=== PATIENT | female | born 1940 | race Caucasian/White ===

== ENCOUNTER 2017-03-19 09:48 | Inpatient (IN) | payer OTHER ==
--- NOTE | 2017-03-19 09:54 | EDPHY ---
H & P HPI/ROS: CHIEF COMPLAINT: Near syncope HISTORY OF PRESENT ILLNESS: The patient is a 76-year-old female, with CHF and oxygen dependent COPD, brought in by EMS, presenting with near syncope. The patient got up this morning feeling fatigued. While sitting in her chair she increasingly felt shaky, developed tunnel vision and thought she would pass out Associated with moderate neck tightness. The patient states she experienced similar throat tightness prior to cardiac stent placement. Her pulse oximeter at home read 62%. The patient is on 2-4L of oxygen chronically. She states she did not feel more short of breath than usual. EMS increased her oxygen and gave her a duoneb en route. She feels better now, though still has some neck tightness. REVIEW OF SYSTEMS: A comprehensive 10 point review of systems is otherwise negative aside from elements mentioned in the history of present illness. Past Medical/Surgical History: CHF, Oxygen-dependent COPD, Pacemaker, Peripheral neuropathy Social History: Daily cigarette smoker. Lives at home with her . Smoking Status: Current every day smoker Physical Exam: General Appearance: Alert, pleasant Eyes: Pupils equal and round, no conjunctival pallor or injection ENT, Mouth: Mucous membranes moist Neck: Normal inspection Respiratory: Normal respiratory rate and effort, Expiratory wheezing bilaterally Cardiovascular: Regular rate and rhythm Gastrointestinal: Abdomen is soft and non-tender Neurological: A&O, nonfocal, normal gait Skin: Warm and dry, no rash Extremities: Nontender, 1+ pedal edema Psychiatric: Mood and affect normal Constitutional: Initial Vital Signs Temperature (C) 36.8 C 03/19/17 09:56 Heart Rate 74 03/19/17 09:56 Respiratory Rate 20 03/19/17 09:56 Blood Pressure 121/70 H 03/19/17 09:56 O2 Sat (%) 96 03/19/17 09:56 O2 Delivery Mode Nasal Cannula O2 (L/minute) 3 Allergies/Adverse Reactions: No Known Allergies Allergy (Verified 01/29/14 20:37) Home Medications: Medication Instructions Recorded Aspirin [Aspirin 81mg (*)] 81 mg PO DAILY 07/10/10 Bisoprolol Fumarate [Zebeta (*)] 5 mg PO HS 07/10/10 Bisoprolol Fumarate [Zebeta (*)] 10 mg PO DAILY 07/10/10 Brimonidine 0.1% [ALPHAGAN P 0.1% 1 drops EACHEYE BID 07/10/10 (*)] Furosemide [Lasix 40 MG (*)] 40 mg PO DAILY@16 07/10/10 Furosemide [Lasix 80 MG (*)] 80 mg PO DAILY 07/10/10 Gabapentin [Neurontin 400 MG (*)] 1,200 mg PO QID 07/10/10 Latanoprost 0.005% [Xalatan 0.005% 1 drops EACHEYE HS 07/10/10 (*)] Nitroglycerin [Nitrostat 0.4 mg 0.4 mg SL Q5M PRN 07/10/10 (*)] Pramipexole Di-HCl [Mirapex 1 mg 1 mg PO HS 07/10/10 (*)] Rivaroxaban [Xarelto 10mg (*)] 20 mg PO HS 07/10/10 Tiotropium Inhaler [Spiriva 18 mcg IH DAILY 07/10/10 Inhaler] celeCOXIB [Celebrex (*)] 200 mg PO DAILY 07/10/10 traMADol [Ultram 50 mg (*)] 100 mg PO QID PRN 07/10/10 Dronedarone HCl [Multaq 400 mg (*)] 400 mg PO BIDMEAL 01/29/14 Pantoprazole Sodium [Protonix 40mg 40 mg PO DAILY 01/29/14 (*)] methYLPHENIDATE HCL [Ritalin 10mg 20 mg PO BID@12,16 01/29/14 (*)] Fluticasone/Salmeter 500/50Mcg 1 puffs IH DAILY PRN 03/19/17 [Advair 500/50 (*)] clonazePAM [klonoPIN (*)] 1 mg PO HS 03/19/17 Medical Decision Making - Diagnostics EKG Interpretation: The 12 lead EKG was interpreted by myself. See hard copy and/or "tracemaster" electronic copy for interpretation: Atrial-paced rhythm. Imaging Results: CXR: cardiomegaly and peribronchial thickening Imaging: I viewed and interpreted images myself ED Course/Re-evaluation: The patient is a pleasant 76-year-old female with history of CHF, presenting with a near syncope and throat tightness this morning. She woke up feeling more fatigued than usual. While sitting in her chair she began to shake and her vision was going dark. The patient states her at home pulse oximeter was 62%. The patient notes a throat tightness that felt similar to prior cardiac stent placement. On exam she has expiratory wheezing. She received albuterol and DuoNeb upon arrival. She states she is feeling better after breathing treatments. Plan for EKG, CBC, Troponin, and chest x-ray. I will have her pacemaker interrogated. The patient is 96% on 3L O2. Clinical scenario concerning for acute coronary syndrome. Stat EKG reveals no evidence of ischemia or dysrhythmia. Initial troponin normal. Her D-dimer is slightly elevated, though looking back on her other D-dimer's, her ddimer has always been somewhat elevated. I do not think that she has an acute pulmonary embolism today and have decided not to pursue a CT pulmonary angiogram. The hospitalist service was consulted for admission. The patient will be admitted to [facility]. Differential Diagnosis: Differential diagnosis includes though it is not limited to pneumonia, pneumothorax, pulmonary embolism, aortic dissection, pericarditis, acute coronary syndrome. - Data Points Laboratory Results: Laboratory Results 03/19/17 09:45 03/19/17 09:45 Medications Given: Discontinued Medications Methylphenidate HCl (Ritalin) 20 mg PO BID@12,16 SAMMI Stop: 09/15/17 15:59 Last Admin: 03/19/17 17:29 Dose: Not Given Departure - Departure Disposition: [facility] Inpatient Acute Clinical Impression: Near syncope, Acute dyspnea Condition: Fair Report Scribed for: Viviana Aguilar Report Scribed by: Garima Campbell Date of Report: 03/19/17 Time of Report: 09:53 Physician Review and Approval Statement: 03/19/17 09:53 Portions of this note were transcribed by a medical director/head team physician. I personally performed the history, physical exam, and medical decision-making; and confirmed the accuracy of the information in the transcribed note.
[2017-03-19 10:36] LABS: ANION GAP 7 mEq/L (8-16); CARBON DIOXIDE 40 mEq/l (22-31); CHLORIDE 94 mEq/L (97-110); CREATININE 0.7 mg/dL (0.6-1.0); GLOMERULAR FILTRATION RATE > 60; GLUCOSE 71 mg/dL (70-100); POTASSIUM 4.6 mEq/L (3.5-5.2); SODIUM 141 mEq/L (134-144)
[2017-03-19 10:37] LABS: % IMMATURE GRANULYOCYTES 0.2 % (0.0-1.1); ABSOLUTE IMMATURE GRANULOCYTES 0.01 10^3/uL (0.00-0.10); ADD DIFF? NO; ADD MORPH? YES; ADD SCAN? NO; ATYPICAL LYMPHOCYTE FLAG 10 (0-99); FRAGMENT RBC FLAG 0 (0-99); HEMATOCRIT 44.3 % (38.0-47.0); HEMOGLOBIN 12.8 g/dL (12.6-16.3); LEFT SHIFT FLG 0 (0-99); LIPEMIA HEMOLYSIS FLAG 70 (0-99); MEAN CELL HEMOGLOBIN 26.7 pg (27.9-34.1); MEAN CELL VOLUME 92.3 fL (81.5-99.8); MEAN PLATELET VOLUME 10.6 fL (8.7-11.7); PLATELET CLUMPS FLAG 0 (0-99); PLATELET COUNT 151 10^3/uL (150-400); RED CELL DISTRIBUTION WIDTH 14.1 % (11.5-15.2)
[2017-03-19 10:38] LABS: MEAN CELL HEMOGLOBIN CONCENTR. 28.9 g/dL (32.4-36.7)
[2017-03-19 10:47] LABS: TROPONIN I < 0.012 ng/mL (0-0.034)
--- NOTE | 2017-03-19 10:59 | CPEKG ---
Heart Rate: 74 RR Interval: 811 P-R Interval: 148 QRSD Interval: 104 QT Interval: 396 QTC Interval: 440 QRS Omer: -19 T Wave Omer: 40 EKG Severity - ABNORMAL ECG - EKG Impression: ATRIAL-PACED RHYTHM EKG Impression: BORDERLINE LEFT AXIS DEVIATION Electronically Signed By: Viviana Aguilar 20-Mar-2017 20:33:05
[2017-03-19 11:21] LABS: HYPOCHROMIA 1+; PLATELET ESTIMATE ADEQUATE (ADEQ); POLYCHROMASIA 1+
[2017-03-19] MEDS ORDERED: FLUTICASONE/SALMETER 500/50MCG DISKUS IH PRN (14:12)
[2017-03-19] MEDS ORDERED: NITROGLYCERIN 0.4 MG BTL SL PRN (14:12)
[2017-03-19] MEDS ORDERED: ONDANSETRON 4 MG/2 ML VIAL IVP PRN (14:15)
[2017-03-19] MEDS ORDERED: ZOLPIDEM TARTRATE 5 MG TAB PO PRN (14:15)
[2017-03-19] MEDS ORDERED: ACETAMINOPHEN 325 MG TAB PO PRN (14:15)
[2017-03-19] MEDS: DRONEDARONE HCL 400 MG TAB PO SCH (17:11)
[2017-03-19] MEDS: traMADol 50 MG TAB PO PRN ×2 (17:11→22:24)
[2017-03-19] MEDS: ASPIRIN 81 MG CHEWABLE TAB PO SCH (17:12)
[2017-03-19] MEDS: GABAPENTIN 400 MG CAP PO SCH ×2 (17:12→21:21)
[2017-03-19] MEDS: FUROSEMIDE 40 MG TAB PO SCH (17:12)
--- NOTE | 2017-03-19 17:51 | PDGENHP ---
History and Physical History and Physical: HISTORY AND PHYSICAL CC: Throat tightness, presyncopal symptoms, dyspnea HISTORY: This patient with a history of heart and lung disease was doing well in her usual state until this morning when she had abrupt spontaneous onset of a lightheadedness with "closing in of my vision", sense of tightness in the throat , dyspnea, and nausea. It is hard for her to recall precisely how long the symptoms lasted but she said that got better when paramedics arrived and applied oxygen. The symptoms are completely resolved at this time. The symptoms do remind her somewhat of symptoms she had before receiving a coronary stent around 10 years ago. She has had no pleuritic pain today. She has had no pain or swelling in her legs recently. She has had no recent fevers. She has had no recent acute cardiac or pulmonary symptoms otherwise. She does have some chronic COPD and respiratory failure with home oxygen and her symptoms from that disorder are unchanged. She does mention to me that she still smokes an occasional cigarette. She states she is compliant with her medications ROS: A comprehensive 10 system review revealed no other significant findings PAST MEDICAL HISTORY: Coronary disease with right coronary artery stent Atrial fibrillation, pacemaker placement, on full-dose anticoagulation chronically COPD with chronic respiratory failure and cor pulmonale on home oxygen Peripheral Neuropathy Osteoarthritis Chronic pain syndrome Appendectomy tonsillectomy FAMILY MEDICAL HISTORY: Heart disease and cancer SOCIAL HISTORY: lives with her in the [facility] private home Still smokes an occasional cigarette No significant alcohol MEDICATIONS: The patients list has been reconciled by our clinical pharmacist in the EMR. I have reviewed the list and ordered appropriate medicines. 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 No other acute cardiopulmonary changes. Osteoporosis and old compression fractures are noted. Permanent pacemaker is in place 12 LEAD EKG, my personal review of the tracing: Sinus rhythm with incomplete right bundle-branch block left axis deviation ASSESSMENT: - symptoms suspicious for unstable angina pectoralis in a patient with prior history of coronary disease with stent to the right coronary -her symptoms have currently resolved and there is no heart failure or arrhythmia and a normal 1st troponin -in addition to angina possible causes of this syndrome include arrhythmia; PE is quite unlikely on anticoagulation -history of atrial fibrillation, currently in a paced rhythm and on anticoagulant -stable chronic respiratory failure with COPD, hypoxemia and CO2 retention -continued tobacco abuse -she does not appear to be on a statin medication PLANS: -observe on night monitor -serial cardiac enzymes and EKG -if she is stable with no evidence of infarction or heart failure will plan on doing stress testing tomorrow which would be with Lexiscan due to her lung disease and other issues -check a lipid panel and will end up recommending statin therapy in this we can come up with some other specific reason to avoid that -tobacco counseling I have reviewed the patient's case in detail with Dr. Sabi Aguilar I have reviewed the patient's past medical records as part of this assessment, including prior hospital admission records
[2017-03-19] MEDS ORDERED: clonazePAM 1 MG TAB PO SCH (21:00)
[2017-03-19] MEDS: PRAMIPEXOLE 1 MG TAB PO SCH (21:20)
[2017-03-19] MEDS: RIVAROXABAN 10 MG TAB PO SCH (21:21)
[2017-03-19] MEDS: BISOPROLOL FUMARATE 5 MG TAB PO SCH (21:21)
[2017-03-19] MEDS: BRIMONIDINE 0.1% 5 ML OPHT.BTL EACHEYE SCH (22:38)
[2017-03-19] MEDS: LATANOPROST 0.005% 2.5 ML OPHT DROPS EACHEYE SCH (22:39)
[2017-03-20 05:17] LABS: ANION GAP 3 mEq/L (8-16); CALCIUM 8.7 mg/dL (8.5-10.4); CARBON DIOXIDE 37 mEq/l (22-31); CHLORIDE 99 mEq/L (97-110); CHOLESTEROL 153 mg/dL (140-220); CHOLESTEROL/HDL RATIO 2.43 RATIO (1.00-4.44); CREATININE 0.7 mg/dL (0.6-1.0); GLOMERULAR FILTRATION RATE > 60; GLUCOSE 77 mg/dL (70-100); HIGH DENSITY LIPOPROTEIN 63 mg/dL (40-85); LDL/HDL RATIO 1.25 RATIO (1.00-3.22); LOW DENSITY LIPOPROTEIN 79 mg/dL (80-100); NON-HIGH DENSITY LIPOPROTEIN 90 mg/dL (90-129); POTASSIUM 4.6 mEq/L (3.5-5.2); SODIUM 139 mEq/L (134-144); TRIGLYCERIDE 57 mg/dL (35-135); VERY LOW DENSITY LIPOPROTEINS 11 mg/dL (8-25)
[2017-03-20 05:28] LABS: TROPONIN I < 0.012 ng/mL (0-0.034)
[2017-03-20] MEDS: GABAPENTIN 400 MG CAP PO SCH ×4 (06:21→21:47)
[2017-03-20] MEDS ORDERED: TIOTROPIUM INHALER 18 MCG/DOSE 5 DOSE/MDI IH SCH (09:00)
[2017-03-20] MEDS ORDERED: IOPAMIDOL (ISOVUE 370) 100 ML BTL IV ONE (09:48)
[2017-03-20 10:05] LABS: BASE EXCESS 6.8 mEq/L (-2.5-2.5); BICARBONATE 37 mEq/L (22-26); MEASURED OXYGEN SATURATION 91 % (92-95); PO2 68 mmHg (65-75); TCO2 39 mEq/L (23-27)
[2017-03-20 10:10] LABS: PCO2 88 mmHg (34-38)
[2017-03-20 10:18] LABS: ANION GAP 4 mEq/L (8-16); CALCIUM 8.8 mg/dL (8.5-10.4); CARBON DIOXIDE 39 mEq/l (22-31); CHLORIDE 98 mEq/L (97-110); CREATININE 0.6 mg/dL (0.6-1.0); GLOMERULAR FILTRATION RATE > 60; GLUCOSE 79 mg/dL (70-100); POTASSIUM 4.4 mEq/L (3.5-5.2); SODIUM 141 mEq/L (134-144)
--- NOTE | 2017-03-20 10:44 | HOSPPROG ---
Hospitalist Progress Note Assessment/Plan: ACUTE CRITICAL CARE CONSULTATION FOR CHANGE IN NEUROLOGIC STATUS I was called in to see the patient approximately 930 this morning. The nurse reports to me that on her 1st visit early this morning the patient appeared to be sleeping comfortably and she did not try to arouse the patient or examined her. On a subsequent visit with the patient at approximately 9:15 a.m. this morning the patient is reported to have been sitting in the bed with her head between her knees and poorly responsive, answering briefly only a question or to not following commands and appearing fairly uncomfortable. By the time I am seeing the patient at 9:30 a.m. she is now unresponsive to all but painful stimuli. She responds to attempt at getting arterial blood gas and venous blood draws by ineffective minimal withdrawal of her limbs. She is breathing comfortably has stable vital signs with mild hypertension, good oxygenation on little more than her usual inhaled oxygen, and is sinus rhythm on telemetry monitor. On my initial examination I get no verbal response from her at all and I can not get her to respond to any verbal input from me. Her pupils when I pull her eyes open are equal round and reactive. She does not make any eye contact stares blankly straight ahead. There is no facial asymmetry. When I pick out hand both of her hands she does not seem to siebel solution architect my hands at all, and if I told her hands up off the bed and leave them up there she will with her elbows flexed liberally hold her hands several inches off the bed. I do not find a Babinski abnormality or any other signs of localizing weakness. Her skin is warm and dry with slightly pale color compared to previous. Respirations do not appear labored more than usual and lungs have very diminished but otherwise clear breath sounds. Heart is regular without new murmur. There is no rash or other acute skin changes. I called for a stroke alert which we have now completed and I called for some tests. We have a fingerstick blood glucose at 96. We have a repeat chemistry panel which is unremarkable. We have and anterior blood gas showing a pCO2 of 88 and a pH of 7.24. We have a CT scan of the head noncontrast with no evidence of bleed. There is questionable evidence of internal capsule abnormalities potentially consistent with ischemia on the left. There is no concerning abnormality on CT angio head and neck. There is nothing to suggest PE on CT angio of the chest. DIAGNOSES: -acute altered mental status may be as CO2 narcosis, I doubt a stroke but will have to have follow-up CT scanning to look at the internal capsule changes on the left. We are not able to MRI as she has an old pacer -acute hypercarbic respiratory failure with respiratory acidosis and chronic hypoxemic respiratory failure. The cause of this acute changes uncertain. She has had no new medications though her medications do include both Klonopin and tramadol which she was given last night before bedtime. There is no identified metabolic change or infection and she does not have PE or heart failure. It is possible this is a primary neurologic condition. -chest pain and near syncope occurred yesterday and with the reason for her admission. She has ruled out for KS and we are planning when able to do cardiac stress testing -history of COPD -history of coronary artery disease PLANS: -begin BiPAP therapy and follow her clinical response closely, repeat ABG -will monitor her and evaluate her further with the possibility of acute stroke considered -repeat CT scan of the head in 1-2 days is considered depending on her progress -discontinue any sedating medicines SUBJECTIVE: Patient unresponsive unable to give any history OBJECTIVE Vitals reviewed: Mild hypertension otherwise stable without fever Phlebotomy Instructor, my review: Sinus rhythm So far a total of greater than 70 minutes of critical care time at the bedside is spent with the patient. I reviewed all the above with the patient's . We had consulted the neurologist on-call at [facility] and I have spoken with him once and will be calling him back again at this time. Objective: Vital Signs Temp Pulse Resp BP Pulse Ox 36.6 C 70 17 141/60 H 95 03/20/17 07:33 03/20/17 07:33 03/20/17 07:33 03/20/17 07:33 03/20/17 07:33 Laboratory Results 03/20/17 09:45 03/19/17 03/20/17 03/21/17 06:59 06:59 06:59 Intake Total 600 Balance 600 ICD10 Worksheet Patient Problems: Problems Problem Status Onset Acute dyspnea Acute Near syncope Acute
[2017-03-20] MEDS: BRIMONIDINE 0.1% 5 ML OPHT.BTL EACHEYE SCH ×2 (11:58→22:08)
[2017-03-20] MEDS: FUROSEMIDE 80 MG TAB PO SCH (12:54)
[2017-03-20] MEDS: BISOPROLOL FUMARATE 5 MG TAB PO SCH ×2 (12:54→21:47)
[2017-03-20] MEDS: DRONEDARONE HCL 400 MG TAB PO SCH ×2 (12:54→18:47)
[2017-03-20] MEDS: ASPIRIN 81 MG CHEWABLE TAB PO SCH (12:54)
[2017-03-20] MEDS: PANTOPRAZOLE SODIUM 40 MG TAB PO SCH (12:55)
[2017-03-20 14:31] LABS: BASE EXCESS 7.3 mEq/L (-2.5-2.5); BICARBONATE 37 mEq/L (22-26); MEASURED OXYGEN SATURATION 98 % (92-95); PO2 107 mmHg (65-75); TCO2 39 mEq/L (23-27)
[2017-03-20 14:32] LABS: BIPAP YES
[2017-03-20 14:33] LABS: EXP PRESSURE 6; INSP PRESSURE 16; O2 CONCENTRATIION 50 % (0-100); P/F RATIO 214 RATIO
[2017-03-20 14:37] LABS: PCO2 84 mmHg (34-38)
[2017-03-20] MEDS: FUROSEMIDE 40 MG TAB PO SCH (15:39)
[2017-03-20] MEDS: IPRATROPIUM/ALBUTEROL 3 ML DEYVIAL IH SCH ×2 (17:57→22:30)
[2017-03-20] MEDS: methylPREDNISolone SOD SUCC 125 MG/2 ML VIAL IVP SCH (18:50)
[2017-03-20] MEDS: PRAMIPEXOLE 1 MG TAB PO SCH (21:47)
[2017-03-20] MEDS: RIVAROXABAN 10 MG TAB PO SCH (21:48)
[2017-03-20] MEDS: LATANOPROST 0.005% 2.5 ML OPHT DROPS EACHEYE SCH (22:08)
[2017-03-21] MEDS: methylPREDNISolone SOD SUCC 125 MG/2 ML VIAL IVP SCH ×3 (00:43→12:40)
[2017-03-21] MEDS: GABAPENTIN 400 MG CAP PO SCH ×5 (00:44→20:08)
[2017-03-21] MEDS: PRAMIPEXOLE 1 MG TAB PO SCH ×2 (00:45→20:08)
[2017-03-21] MEDS ORDERED: traMADol 50 MG TAB PO ONE (01:11)
[2017-03-21] MEDS: IPRATROPIUM/ALBUTEROL 3 ML DEYVIAL IH SCH ×3 (05:35→17:59)
[2017-03-21] MEDS: BISOPROLOL FUMARATE 5 MG TAB PO SCH ×2 (09:04→20:08)
[2017-03-21] MEDS: DRONEDARONE HCL 400 MG TAB PO SCH ×3 (09:04→18:30)
[2017-03-21] MEDS: ASPIRIN 81 MG CHEWABLE TAB PO SCH ×2 (09:04→09:32)
--- NOTE | 2017-03-21 09:13 | HOSPPROG ---
Hospitalist Progress Note Assessment/Plan: DIAGNOSES: -ACUTE CO2 NARCOSIS, RESOLVED AFTER BIPAP, STEROIDS, ALBUTEROL -ACUTE HYPERCARBIC RESPIRATORY FAILURE WITH RESPIRATORY ACIDOSIS AND CHRONIC HYPERCARBIC/HYPOXEMIC RESPIRATORY FAILURE: suspect due to COPD exacerbation -CHEST PAIN PRESENTING SYMPTOM, resolved, history of coronary artery disease and stent -CT SCAN OF HEAD WITH SUBTLE CHANGES SUGGESTIVE OF POSSIBLE INTERNAL CAPSULE STROKE, BUT NO SYNDROME CLINICALLY CONSISTENT WITH THAT -HISTORY OF ATRIAL FIBRILLATION, CURRENTLY PACED ON ANTICOAGULATION -HISTORY OF COPD Is now doing well on OxyMask. Will continue oxygen support, steroids and bronchodilators and increase activity as able. At the moment I do not see signs of heart failure or any definite signs of pneumonia. Her presenting symptoms still raise concern for possible coronary issues and need further evaluation I reviewed in detail with Dr. Schreiber today PLANS: -continue steroids and bronchodilators and oxygen support as needed -increase activity as able -repeat CT scan of the head tomorrow to reassess left internal capsule findings on prior study -Lexiscan stress test when she is clearly stable -keep off any sedating medicines here and also well at home SUBJECTIVE: States she feels comfortable with no chest pain leg pain or other discomforts, no nausea or fever symptoms, and is very hungry Slept well during the night Was able to wean off of BiPAP over night and is on OxyMask at this point OBJECTIVE Vitals reviewed: Mild hypertension otherwise stable without fever Juice Tester, my review: Paced at 80 Objective: Vital Signs Temp Pulse Resp BP Pulse Ox 36.9 C 80 20 137/56 H 91 L 03/20/17 21:00 03/21/17 09:04 03/21/17 06:00 03/21/17 09:04 03/21/17 06:00 03/20/17 03/21/17 03/22/17 06:59 06:59 06:59 Intake Total 300 Output Total 1400 Balance -1100 ICD10 Worksheet Patient Problems: Problems Problem Status Onset Acute dyspnea Acute Near syncope Acute
[2017-03-21] MEDS: PANTOPRAZOLE SODIUM 40 MG TAB PO SCH (09:32)
[2017-03-21] MEDS: FUROSEMIDE 80 MG TAB PO SCH (09:32)
[2017-03-21 11:27] LABS: BASE EXCESS 6.6 mEq/L (-2.5-2.5); BICARBONATE 33 mEq/L (22-26); MEASURED OXYGEN SATURATION 92 % (92-95); PCO2 56 mmHg (34-38); PO2 64 mmHg (65-75); TCO2 35 mEq/L (23-27)
[2017-03-21] MEDS: BRIMONIDINE 0.1% 5 ML OPHT.BTL EACHEYE SCH ×2 (11:51→20:08)
--- NOTE | 2017-03-21 15:32 | PDINTPN ---
Computer Numerical Control Operator Progress Note Assessment/Plan: Assessment: Acute on chronic hypercapneic respiratory failure: Clinically improved after BiPAP. ABG probably at baseline now. COPD exacerbation: Likely contributed to respiratory failure. On steroids Atrial fibrillation: Chronic Plan: Change to PO steroids. Continue supplemental oxygen. an transfer out of ICU. ? cardiac evaluation, although current deterioration could all be due to COPD with a subtle perturbation. Avoid any respiratory depressants 03/21/17 15:28 Subjective: Feels better, more alert, denies dyspnea, cough. Denies CP. Objective: Vital Signs Temp Pulse Resp BP Pulse Ox 36.9 C 75 18 97/46 L 93 03/20/17 21:00 03/21/17 14:00 03/21/17 14:00 03/21/17 14:00 03/21/17 14:00 03/20/17 03/21/17 03/22/17 05:59 05:59 05:59 Intake Total 300 Output Total 1400 200 Balance -1100 -200 Laboratory Tests 03/21/17 11:20 pCO2 56 H pO2 64 L Total CO2 35 H ABG pH 7.38 Total O2 Concentration 2.0 Physical Exam - Physical Exam General Appearance: alert, no apparent distress EENT: normal ENT inspection Neck: normal inspection Respiratory: No lungs clear, No normal breath sounds (decreased bilaterally) Cardiac/Chest: normal peripheral pulses, regular rate, rhythm, No edema Abdomen: normal bowel sounds, non-tender, soft Skin: normal color, warm/dry Extremities: normal inspection Neuro/Psych: no motor/sensory deficits, alert, normal mood/affect, oriented x 3 ICD10 Worksheet Patient Problems: Problems Problem Status Onset Acute dyspnea Acute Near syncope Acute
--- NOTE | 2017-03-21 15:56 | GCON ---
[f rep st] CONSULTATION PULMONARY/CRITICAL CARE CONSULTATION. DATE OF CONSULTATION: 03/20/2017 REFERRING PHYSICIAN: [facility] MD REASON FOR REFERRAL: Evaluation and management of acute on chronic hypercapnic respiratory failure. HISTORY: The patient is a 76-year-old woman, known to me from outpatient followup for her severe oxygen-dependent COPD. She was admitted yesterday, stating that she was in her usual state of health when she had a fairly abrupt onset of lightheadedness and loss of vision with tightness in her throat, shortness of breath, and nausea. Paramedics were called and arrived. She was put on oxygen, and her symptoms improved. She was brought to the hospital and admitted. This morning, the patient became less responsive and was found to have a respiratory acidosis. She was transferred to the intensive care unit, where she was placed on bypass. She is starting to become a bit more responsive but still is nowhere near her baseline. PAST MEDICAL HISTORY: 1. COPD with chronic hypercapnic respiratory insufficiency, cor pulmonale, on continuous home oxygen. 2. Coronary artery disease status post right coronary artery stent. 3. Atrial fibrillation status post pacemaker, on full-dose anticoagulation. 4. Peripheral neuropathy. 5. Osteoarthritis. 6. Status post appendectomy. MEDICATIONS: Xarelto, Nitrostat, Mirapex, aspirin, Lasix, Celebrex, bisoprolol , Spiriva, tramadol, gabapentin, furosemide, Ritalin, Protonix, Multaq, Advair, and clonazepam 1 mg in the evening. ALLERGIES: None. SOCIAL HISTORY: The patient has long-standing history of smoking and still smokes a cigarette occasionally. She lives at home with her . She denies alcohol. FAMILY HISTORY: Unremarkable. REVIEW OF SYSTEMS: Review of systems is unobtainable. PHYSICAL EXAMINATION: GENERAL: The patient is somnolent and minimally arousable. VITAL SIGNS: Blood pressure is 103/54 with a pulse of 80. She is afebrile. Oxygen saturations are 93% on 35% oxygen via BiPAP. HEENT: Normocephalic and atraumatic. No icterus. NECK: No JVD. Trachea is midline. CHEST: Decreased breath sounds bilaterally. CARDIAC: Irregularly irregular without murmur. ABDOMEN: Soft, nontender. Bowel sounds are present. EXTREMITIES: No clubbing, cyanosis, or edema. NEURO: Minimall responsive, moves all extremities LABORATORY: CBC is normal. Chemistry panel shows a carbon dioxide level of 40. An arterial blood gas shows a pH of 7.24 with a pO2 of 68, a CO2 of 88, and a total bicarbonate of 32 on 2 L of oxygen. Subsequent arterial blood gas on BiPAP shows a pH of 7.26 with a pCO2 of 84, pO2 of 107 on 50% oxygen. IMAGING: A CT scan of the chest demonstrates a possible tiny subsegmental left pulmonary artery thrombus. There was a band of atelectasis/fibrosis in the right lower lobe. There was some mild bronchial thickening with mucous plugging. Images reviewed. ASSESSMENT: 1. Chronic obstructive pulmonary disease exacerbation. 2. Acute on chronic hypercapnic respiratory failure. The patient has an increase in her baseline CO2, which likely normally runs in the 50s. She has improved a bit with BiPAP, and I am hopeful that she will continue to improve, barring any overall change in her status. RECOMMENDATIONS: 1. Continue BiPAP. I concur with the current settings. 2. Avoid/minimize any respiratory depressants, including narcotics and benzodiazepines. 3. I had a long talk with the patient's , daughters, and Dr. [facility]ett regarding her course status. The patient had expressed that she would not want to be intubated if it was going to be prolonged, but would consider intubation for a shorter, more acute and reversible deterioration. After this long discussion, the family feels that, given the current circumstances, she would probably want to be intubated; so she will be intubated if she deteriorates. 4. Continue IV steroids. I do not think I would give IV antibiotics currently , but this can be reassessed if the patient develops fever, elevated white blood count, or a productive cough. /[id number]/MODL MTDD
[2017-03-21] MEDS: FUROSEMIDE 40 MG TAB PO SCH (15:57)
[2017-03-21] MEDS: predniSONE 20 MG TAB PO SCH (18:17)
[2017-03-21] MEDS: RIVAROXABAN 10 MG TAB PO SCH (20:08)
[2017-03-21] MEDS: LATANOPROST 0.005% 2.5 ML OPHT DROPS EACHEYE SCH (20:08)
[2017-03-22] MEDS: IPRATROPIUM/ALBUTEROL 3 ML DEYVIAL IH SCH ×5 (00:50→22:51)
[2017-03-22] MEDS: PRAMIPEXOLE 1 MG TAB PO SCH ×3 (01:10→19:38)
[2017-03-22] MEDS: traMADol 50 MG TAB PO PRN ×2 (01:41→08:39)
[2017-03-22] MEDS ORDERED: PRAMIPEXOLE 1 MG TAB PO ONE (03:21)
[2017-03-22 05:13] LABS: % IMMATURE GRANULYOCYTES 0.3 % (0.0-1.1); ABSOLUTE IMMATURE GRANULOCYTES 0.02 10^3/uL (0.00-0.10); ADD DIFF? NO; ADD MORPH? NO; ADD SCAN? NO; ATYPICAL LYMPHOCYTE FLAG 0 (0-99); FRAGMENT RBC FLAG 0 (0-99); HEMATOCRIT 37.7 % (38.0-47.0); HEMOGLOBIN 11.4 g/dL (12.6-16.3); LEFT SHIFT FLG 30 (0-99); LIPEMIA HEMOLYSIS FLAG 80 (0-99); MEAN CELL HEMOGLOBIN 26.4 pg (27.9-34.1); MEAN CELL HEMOGLOBIN CONCENTR. 30.2 g/dL (32.4-36.7); MEAN CELL VOLUME 87.3 fL (81.5-99.8); MEAN PLATELET VOLUME 9.9 fL (8.7-11.7); PLATELET CLUMPS FLAG 10 (0-99); PLATELET COUNT 137 10^3/uL (150-400); RED BLOOD CELL COUNT 4.32 10^6/uL (4.18-5.33); RED CELL DISTRIBUTION WIDTH 14.1 % (11.5-15.2)
[2017-03-22 05:21] LABS: ANION GAP 11 mEq/L (8-16); CALCIUM 8.7 mg/dL (8.5-10.4); CARBON DIOXIDE 32 mEq/l (22-31); CHLORIDE 97 mEq/L (97-110); CREATININE 0.9 mg/dL (0.6-1.0); GLOMERULAR FILTRATION RATE > 60; GLUCOSE 223 mg/dL (70-100); SODIUM 140 mEq/L (134-144)
[2017-03-22] MEDS: GABAPENTIN 400 MG CAP PO SCH ×4 (07:04→19:39)
[2017-03-22] MEDS: DRONEDARONE HCL 400 MG TAB PO SCH ×2 (08:37→17:11)
[2017-03-22] MEDS: predniSONE 20 MG TAB PO SCH ×2 (08:37→17:11)
[2017-03-22] MEDS: ASPIRIN 81 MG CHEWABLE TAB PO SCH (08:37)
[2017-03-22] MEDS: BISOPROLOL FUMARATE 5 MG TAB PO SCH ×2 (08:38→19:38)
[2017-03-22] MEDS: BRIMONIDINE 0.1% 5 ML OPHT.BTL EACHEYE SCH ×2 (08:39→19:43)
[2017-03-22] MEDS: FUROSEMIDE 80 MG TAB PO SCH (08:39)
[2017-03-22] MEDS: PANTOPRAZOLE SODIUM 40 MG TAB PO SCH (08:39)
--- NOTE | 2017-03-22 11:41 | PDINTPN ---
Case Therapist Progress Note Assessment/Plan: Assessment: Acute on chronic hypercapneic respiratory failure: Clinically improved after BiPAP. ABG probably at baseline now. COPD exacerbation: Likely contributed to respiratory failure. On steroids Atrial fibrillation: Chronic Hyperglycemia: Likely due to steroids. Plan: Continue PO steroids, reduce dose. Continue supplemental oxygen. Probably can discharge today. ? cardiac evaluation, although current deterioration could all be due to COPD with a subtle perturbation such as fluid change/edema. Avoid any respiratory depressants 03/22/17 11:43 03/22/17 11:44 Subjective: Feels better, dyspnea back at baseline. Appetite good. Objective: Vital Signs Temp Pulse Resp BP Pulse Ox 37.2 C 82 16 125/51 H 96 03/22/17 08:00 03/22/17 08:00 03/22/17 08:00 03/22/17 08:00 03/22/17 08:00 Laboratory Results 03/22/17 05:00 03/22/17 05:00 03/21/17 03/22/17 03/23/17 05:59 05:59 05:59 Intake Total 300 500 Output Total 1400 400 Balance -1100 100 CXR: Improved edema. Images reviewed. Physical Exam - Physical Exam General Appearance: alert, no apparent distress EENT: normal ENT inspection Neck: normal inspection Respiratory: lungs clear, normal breath sounds Cardiac/Chest: regular rate, rhythm, No edema Abdomen: normal bowel sounds, non-tender Skin: normal color, warm/dry Extremities: non-tender Neuro/Psych: alert, normal mood/affect, oriented x 3 ICD10 Worksheet Patient Problems: Problems Problem Status Onset Acute dyspnea Acute Near syncope Acute
--- NOTE | 2017-03-22 14:24 | HOSPPROG ---
Hospitalist Progress Note Assessment/Plan: DIAGNOSES: -ACUTE CO2 NARCOSIS, RESOLVED AFTER BIPAP, STEROIDS, ALBUTEROL -ACUTE HYPERCARBIC RESPIRATORY FAILURE WITH RESPIRATORY ACIDOSIS AND CHRONIC HYPERCARBIC/HYPOXEMIC RESPIRATORY FAILURE: suspect due to COPD exacerbation -CHEST PAIN PRESENTING SYMPTOM, resolved, history of coronary artery disease and stent -CT SCAN OF HEAD WITH SUBTLE CHANGES SUGGESTIVE OF POSSIBLE INTERNAL CAPSULE STROKE, BUT NO SYNDROME CLINICALLY CONSISTENT WITH THAT -HISTORY OF ATRIAL FIBRILLATION, CURRENTLY PACED ON ANTICOAGULATION -HYPERGLYCEMIA LIKELY DUE TO STEROIDS GIVEN FOR HER COPD EXACERBATION -HISTORY OF COPD Is now doing well on OxyMask. Will continue oxygen support, steroids and bronchodilators and increase activity as able. At the moment I do not see signs of heart failure or any definite signs of pneumonia. Her presenting symptoms still raise concern for possible coronary issues and need further evaluation I reviewed in detail with Dr. Schreiber today PLANS: -continue steroids and bronchodilators and oxygen support as needed, will begin a very slow wean of steroid - she will need a Lexiscan stress test before discharge; had caffeine today -increase activity as able -repeat CT scan of the head tomorrow to reassess left internal capsule findings on prior study -keep off any sedating medicines here and also well at home SUBJECTIVE: having a notably better day today At her be baseline respiratory status and baseline oxygen use No recurrent angina, nausea, lightheadedness back on nasal cannula OBJECTIVE Vitals reviewed: stable without fever 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, 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: Paced at 80 exam: Wide awake alert oriented, relaxed Skin warm dry with good color Good capillary refill No jugular venous distension Respirations not labored Lungs with better air movement today, no rales or wheeze Heart regular no murmur No edema laboratory data: Glucose elevated 220 likely due to her steroids Otherwise stable labs Objective: Vital Signs Temp Pulse Resp BP Pulse Ox 37.2 C 82 16 125/51 H 96 03/22/17 08:00 03/22/17 08:00 03/22/17 11:38 03/22/17 08:00 03/22/17 08:00 Laboratory Results 03/22/17 05:00 03/22/17 05:00 03/21/17 03/22/17 03/23/17 06:59 06:59 06:59 Intake Total 300 500 Output Total 1400 400 Balance -1100 100 ICD10 Worksheet Patient Problems: Problems Problem Status Onset Acute dyspnea Acute Near syncope Acute
[2017-03-22] MEDS: FUROSEMIDE 40 MG TAB PO SCH (17:11)
[2017-03-22] MEDS: RIVAROXABAN 10 MG TAB PO SCH (19:38)
[2017-03-22] MEDS: LATANOPROST 0.005% 2.5 ML OPHT DROPS EACHEYE SCH (19:43)
[2017-03-22] MEDS ORDERED: DILTIAZEM 25 MG/5 ML VIAL IVP ONE (20:45)
[2017-03-22] MEDS ORDERED: DILTIAZEM 30 MG TAB PO ONE (21:00)
[2017-03-23] MEDS: traMADol 50 MG TAB PO PRN (02:49)
[2017-03-23] MEDS: GABAPENTIN 400 MG CAP PO SCH ×4 (05:32→20:59)
[2017-03-23] MEDS: IPRATROPIUM/ALBUTEROL 3 ML DEYVIAL IH SCH ×4 (05:45→22:47)
--- NOTE | 2017-03-23 10:59 | PDINTPN ---
Relationship Banker Progress Note Assessment/Plan: Assessment: Acute on chronic hypercapneic respiratory failure: Clinically improved after BiPAP. ABG probably at baseline now. COPD exacerbation: Likely contributed to respiratory failure. On steroids Atrial fibrillation: Chronic Hyperglycemia: Likely due to steroids. Plan: Continue PO steroids at reduced dose. Continue supplemental oxygen. Probably can discharge today if cardiac test OK. Taper prednisone fairly quickly , probably just a few days. Avoid any respiratory depressants 03/23/17 11:04 Subjective: Feels back to baseline. Anxious to get home. Denies dyspnea. Objective: Vital Signs Temp Pulse Resp BP Pulse Ox 37.0 C 73 17 125/91 H 100 03/23/17 08:00 03/23/17 08:00 03/23/17 08:00 03/23/17 08:00 03/23/17 08:00 Laboratory Results 03/22/17 05:00 03/22/17 05:00 03/22/17 03/23/17 03/24/17 05:59 05:59 05:59 Intake Total 500 1500 Output Total 400 1000 Balance 100 500 CTH: Stable density left c/w age-indeterminate infarct. Images reviewed. Physical Exam - Physical Exam General Appearance: alert EENT: normal ENT inspection Neck: normal inspection Respiratory: lungs clear, decreased breath sounds Cardiac/Chest: regular rate, rhythm, No edema Abdomen: normal bowel sounds, non-tender, soft Skin: normal color, warm/dry Extremities: normal inspection Neuro/Psych: alert, normal mood/affect, oriented x 3 ICD10 Worksheet Patient Problems: Problems Problem Status Onset Acute dyspnea Acute Near syncope Acute
[2017-03-23] MEDS ORDERED: REGADENOSON 0.4 MG/5 ML SYR IVP ONE (11:48)
[2017-03-23] MEDS: FUROSEMIDE 80 MG TAB PO SCH (13:26)
[2017-03-23] MEDS: PANTOPRAZOLE SODIUM 40 MG TAB PO SCH (13:26)
[2017-03-23] MEDS: predniSONE 20 MG TAB PO SCH ×2 (13:26→18:10)
[2017-03-23] MEDS: DRONEDARONE HCL 400 MG TAB PO SCH ×2 (13:26→18:10)
[2017-03-23] MEDS: ASPIRIN 81 MG CHEWABLE TAB PO SCH (13:26)
[2017-03-23] MEDS: BISOPROLOL FUMARATE 5 MG TAB PO SCH ×2 (13:26→20:59)
--- NOTE | 2017-03-23 13:31 | CPR ---
[f rep st] NONINVASIVE CARDIAC PROCEDURE REPORT PROCEDURE PERFORMED: Pharmacologic nuclear stress test. INDICATION FOR PROCEDURE: Chest pain. PROCEDURE: After informed consent was obtained, the patient was placed on an EKG monitoring. Basel ine ECG demonstrated a normal sinus rhythm with intermittent atrial paced complex with underlying ri ght bundle branch block. The patient received injection of Lexiscan 0.4 mg. At peak hyperemia, the patient was injected with 24.6 mCi of Tc-99m sestamibi. The patient had no symptoms including no c hest pain or chest pressure. She did experience some dyspnea which is consistent with Lexiscan coup led with underlying COPD. There were no ischemic EKG changes. The patient tolerated the procedure well. There were no complications. FINDINGS: 1. No evidence of ischemic ECG changes with Lexiscan infusion. 2. No symptoms consistent with ischemia. 3. Nuclear images pending. /[id number]/MODL
[2017-03-23] MEDS: BRIMONIDINE 0.1% 5 ML OPHT.BTL EACHEYE SCH ×2 (14:52→21:00)
--- NOTE | 2017-03-23 17:37 | HOSPPROG ---
Hospitalist Progress Note Assessment/Plan: DIAGNOSES: -ACUTE CO2 NARCOSIS, RESOLVED AFTER BIPAP, STEROIDS, ALBUTEROL -ACUTE HYPERCARBIC RESPIRATORY FAILURE WITH RESPIRATORY ACIDOSIS AND CHRONIC HYPERCARBIC/HYPOXEMIC RESPIRATORY FAILURE: suspect due to COPD exacerbation -CHEST PAIN PRESENTING SYMPTOM, resolved, history of coronary artery disease and stent -CT SCAN OF HEAD WITH SUBTLE CHANGES SUGGESTIVE OF POSSIBLE INTERNAL CAPSULE STROKE, BUT NO SYNDROME CLINICALLY CONSISTENT WITH THAT -HISTORY OF ATRIAL FIBRILLATION, CURRENTLY PACED ON ANTICOAGULATION -HYPERGLYCEMIA LIKELY DUE TO STEROIDS GIVEN FOR HER COPD EXACERBATION -HISTORY OF COPD Is now doing well on OxyMask. Will continue oxygen support, steroids and bronchodilators and increase activity as able. At the moment I do not see signs of heart failure or any definite signs of pneumonia. Her presenting symptoms still raise concern for possible coronary issues and need further evaluation I reviewed in detail with Dr. Schreiber today PLANS: -continue steroids and bronchodilators and oxygen support as needed, will begin a very slow wean of steroid if she improves -will need to complete resting myocardial perfusion images tomorrow -increase activity as able -repeat CT scan of the head tomorrow to reassess left internal capsule findings on prior study -keep off any sedating medicines here and also at home SUBJECTIVE: states she feels a bit beat up after the Lexiscan stress test. 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 Cates of radiology: There are multiple areas of decreased perfusion of the left ventricle suggestive either of old infarct or ischemia, resting images will not be able to be performed until tomorrow Objective: Vital Signs Temp Pulse Resp BP Pulse Ox 37.0 C 73 17 125/91 H 100 03/23/17 08:00 03/23/17 08:00 03/23/17 08:00 03/23/17 08:00 03/23/17 08:00 Laboratory Results 03/22/17 05:00 03/22/17 05:00 03/22/17 03/23/17 03/24/17 06:59 06:59 06:59 Intake Total 500 1500 Output Total 400 1000 Balance 100 500 ICD10 Worksheet Patient Problems: Problems Problem Status Onset Acute dyspnea Acute Near syncope Acute
[2017-03-23] MEDS: FUROSEMIDE 40 MG TAB PO SCH (18:10)
[2017-03-23] MEDS: RIVAROXABAN 10 MG TAB PO SCH (20:59)
[2017-03-23] MEDS: PRAMIPEXOLE 1 MG TAB PO SCH (20:59)
[2017-03-23] MEDS: LATANOPROST 0.005% 2.5 ML OPHT DROPS EACHEYE SCH (21:00)
[2017-03-24] MEDS: GABAPENTIN 400 MG CAP PO SCH ×4 (05:47→21:23)
[2017-03-24] MEDS: traMADol 50 MG TAB PO PRN (05:47)
[2017-03-24] MEDS: IPRATROPIUM/ALBUTEROL 3 ML DEYVIAL IH SCH ×4 (06:32→23:32)
[2017-03-24] MEDS: ASPIRIN 81 MG CHEWABLE TAB PO SCH (08:16)
[2017-03-24] MEDS: PANTOPRAZOLE SODIUM 40 MG TAB PO SCH (08:17)
[2017-03-24] MEDS: predniSONE 20 MG TAB PO SCH ×2 (08:17→18:12)
[2017-03-24] MEDS: FUROSEMIDE 80 MG TAB PO SCH (08:17)
[2017-03-24] MEDS: BISOPROLOL FUMARATE 5 MG TAB PO SCH ×2 (08:17→21:39)
[2017-03-24] MEDS: BRIMONIDINE 0.1% 5 ML OPHT.BTL EACHEYE SCH ×2 (09:22→21:26)
[2017-03-24] MEDS: DRONEDARONE HCL 400 MG TAB PO SCH ×2 (09:40→18:12)
[2017-03-24] MEDS: FUROSEMIDE 40 MG TAB PO SCH (15:43)
--- NOTE | 2017-03-24 18:16 | HOSPPROG ---
Hospitalist Progress Note Assessment/Plan: DIAGNOSES: -ACUTE CO2 NARCOSIS, RESOLVED AFTER BIPAP, STEROIDS, ALBUTEROL -ACUTE HYPERCARBIC RESPIRATORY FAILURE WITH RESPIRATORY ACIDOSIS AND CHRONIC HYPERCARBIC/HYPOXEMIC RESPIRATORY FAILURE: suspect due to COPD exacerbation -CHEST PAIN PRESENTING SYMPTOM, resolved, history of coronary artery disease and stent -CT SCAN OF HEAD WITH SUBTLE CHANGES SUGGESTIVE OF POSSIBLE INTERNAL CAPSULE STROKE, BUT NO SYNDROME CLINICALLY CONSISTENT WITH THAT -HISTORY OF ATRIAL FIBRILLATION, CURRENTLY PACED ON ANTICOAGULATION -HYPERGLYCEMIA LIKELY DUE TO STEROIDS GIVEN FOR HER COPD EXACERBATION -HISTORY OF COPD Continues to make progress slowly but still very debilitated and deconditioned, not at her best baseline breathing PLANS: -continue treatment here - if not strong enough for home tomorrow may need to consider SNF -continue steroids and bronchodilators and oxygen support as needed -increase activity as able -repeat CT scan of the head tomorrow to reassess left internal capsule findings on prior study -keep off any sedating medicines here and also at home SUBJECTIVE: better overall but still fairly weak today has not ambulated and does not feel strong enough to go home OBJECTIVE Vitals reviewed: 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 without fever 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, 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: Paced at 80 exam: Wide awake alert oriented, relaxed Skin warm dry with good color Good capillary refill No jugular venous distension Respirations not labored Lungs with better air movement today, no rales or wheeze Heart regular no murmur No edema Lexiscan with myocardial perfusion imaging, I reviewed with Dr Blanchard in imaging dept: no sign of ischemia Objective: Vital Signs Temp Pulse Resp BP Pulse Ox 37.2 C 107 H 17 125/75 H 91 L 03/24/17 16:00 03/24/17 16:00 03/24/17 16:00 03/24/17 16:00 03/24/17 16:00 Laboratory Results 03/22/17 05:00 03/22/17 05:00 03/23/17 03/24/17 03/25/17 06:59 06:59 06:59 Intake Total 1500 300 Output Total 1000 Balance 500 300 ICD10 Worksheet Patient Problems: Problems Problem Status Onset Acute dyspnea Acute Near syncope Acute
[2017-03-24] MEDS: PRAMIPEXOLE 1 MG TAB PO SCH (21:23)
[2017-03-24] MEDS: RIVAROXABAN 10 MG TAB PO SCH (21:24)
[2017-03-24] MEDS: LATANOPROST 0.005% 2.5 ML OPHT DROPS EACHEYE SCH (21:26)
[2017-03-25] MEDS: traMADol 50 MG TAB PO PRN (05:43)
[2017-03-25] MEDS: GABAPENTIN 400 MG CAP PO SCH (05:43)
[2017-03-25] MEDS: BRIMONIDINE 0.1% 5 ML OPHT.BTL EACHEYE SCH (05:48)
[2017-03-25] MEDS: IPRATROPIUM/ALBUTEROL 3 ML DEYVIAL IH SCH ×2 (06:13→11:37)
[2017-03-25 08:19] VITALS: BP 140/64; TEMP 99.1; O2SAT 93
[2017-03-25] MEDS: ASPIRIN 81 MG CHEWABLE TAB PO SCH (08:24)
[2017-03-25] MEDS: BISOPROLOL FUMARATE 5 MG TAB PO SCH (08:24)
[2017-03-25] MEDS: PANTOPRAZOLE SODIUM 40 MG TAB PO SCH (08:24)
[2017-03-25] MEDS: DRONEDARONE HCL 400 MG TAB PO SCH (08:25)
[2017-03-25] MEDS: FUROSEMIDE 80 MG TAB PO SCH (08:26)
[2017-03-25] MEDS: predniSONE 20 MG TAB PO SCH (08:33)
[2017-03-25 11:48] VITALS: PULSE 72; RESP 24
--- NOTE | 2017-03-25 12:22 | GDS ---
[f rep st] DISCHARGE SUMMARY DIAGNOSES: 1. Acute CO2 narcosis. 2. Acute on chronic hypercarbic respiratory failure. 3. Abnormal CT imaging of internal capsule. 4. Hyperglycemia. 5. History of chronic obstructive pulmonary disease. 6. History of atrial fibrillation paced on anticoagulation. HOSPITAL COURSE: This is a 76-year-old female who initially presented with chest pain. She was found to have a chronic obstructive pulmonary disease exacerbation with acute on chronic hypercapnia. She has been treated with bronchodilators as well as prednisone with significant improvement. When I am seeing her, she is at her baseline oxygen which is about 2 liters. She is ambulating, appears dyspneic, but tells me that this is her baseline. For this , I will continue her outpatient bronchodilators, give her a slow taper of prednisone, and follow up with Dr. Schreiber. I have instructed her on appropriate tapering of her prednisone, and have given her extra so that she may re- increase her dose if necessary. She had some subtle findings on CT head in her internal capsule which may be possibly a stroke, though she has no clinical findings consistent with a stroke. She is currently anticoagulated with Xarelto for atrial fibrillation. Her LDL is 79. I will defer starting a statin therapy as it is not a clear diagnosis. I will have her follow up with Dr. Ken as an outpatient. She has been somewhat debilitated. When I am seeing her, she and her confirmed that she is ambulating at her baseline. I think it is reasonable to discharge her home as opposed to a custodial facility given her baseline functional status. BILLING: I spent more than 30 minutes on the day of discharge coordinating care. /[id number]/MODL MTDD
== END 2017-03-25 12:05 | disposition home or self-care (01) | DRG 190 ==
LOC: EDUNIT# → UNDOADMOB 11:23 → F2W 15:14 → OBSVTOIN 03-20 10:39 → F2N 03-20 12:52 → F2W 03-23 20:31
PROVIDERS: ADMIT Internal Medicine; ATTEND Student in an Organized Health Care Education/Training Program
DX: J44.1 Chronic obstructive pulmonary disease with (acute) exacerbation (principal); J96.22 Acute and chronic respiratory failure with hypercapnia; I27.81 Cor pulmonale (chronic); E87.2 Acidosis; R55 Syncope and collapse; I50.9 Heart failure, unspecified; I48.2 Chronic atrial fibrillation; I25.10 Atherosclerotic heart disease of native coronary artery without angina pectoris; R73.9 Hyperglycemia, unspecified; G62.9 Polyneuropathy, unspecified; G89.4 Chronic pain syndrome; F17.210 Nicotine dependence, cigarettes, uncomplicated; Z95.0 Presence of cardiac pacemaker; Z99.81 Dependence on supplemental oxygen; Z79.01 Long term (current) use of anticoagulants; Z95.5 Presence of coronary angioplasty implant and graft
CPT/HCPCS: 82947-QW; 97161-GP; 97165-GO; A9500; G0378; G8978-GP-CI; G8979-GP-CI; G8980-GP-CI; G8987-GO-CI; G8988-GO-CI; G8989-GO-CI; J2785; Q9967

== ENCOUNTER 2017-04-09 10:00 | Inpatient (IN) | payer OTHER ==
--- NOTE | 2017-04-09 10:23 | EDPHY ---
H & P Time Seen by Provider: 04/09/17 10:22 HPI/ROS: CHIEF COMPLAINT: Respiratory distress. HISTORY OF PRESENT ILLNESS: The patient is a 76-year-old female with a history of COPD and chronic respiratory failure on chronic home oxygen who presents via EMS for shortness of breath and hypoxia that began this morning. Per her oxygen saturation was 78% on her normal 2L. O2 saturation was 52% on room air when the patient woke, but she tells me that her nighttime oxygen had fallen off. She denies chest pain, vomiting, fever, rhinorrhea, cough, nausea, diarrhea. She was in the hospital for 5 days for similar symptoms 2 weeks ago. History limited due to patient's clinical condition, at the time of evaluation the patient is on BiPAP. No fever, chills, chest pain, palpitations, vomiting, diarrhea, urinary complaints, headache, lightheadedness. REVIEW OF SYSTEMS: Limited secondary to the patient's clinical condition. PAST MEDICAL HISTORY: COPD, CAD, atrial fibrillation, pacemaker, peripheral neuropathy, osteoarthritis, chronic pain, appendectomy, tonsillectomy. SOCIAL HISTORY: . VITAL SIGNS: Reviewed by me GENERAL: Well-developed, well-nourished, currently on a BiPAP machine. Significant respiratory distress on arrival. HEENT: Atraumatic. Eyes: No icterus, no injection. Mouth: Slightly dry moist mucous membranes. No erythema or lesions. Neck: supple with no adenopathy. LUNGS: Coarse breath sounds. Crackles at both bases and anteriorly on the left. Wheezes at right base. Very distant breath sounds. CARDIAC: Mildly irregular rate and rhythm, no rubs, murmurs or gallops. ABDOMEN: Soft, nontender, nondistended, bowel sounds normal. BACK: No CVA tenderness. EXTREMITIES: No trauma. No edema. Range of motion is normal throughout. NEURO: Alert and oriented, grossly nonfocal. SKIN: Warm and dry, no rash. PSYCHIATRIC: Normal mentation, no agitation. Portions of this note were transcribed by a medical billing instructor. I personally performed a history, physical exam, medical decision making, and confirmed accuracy of information the transcribed note. Source: Patient Exam Limitations: Clinical condition - Medical/Surgical History Hx Asthma: No Hx Chronic Respiratory Disease: Yes Hx Diabetes: No Hx Cardiac Disease: Yes Hx Renal Disease: No Hx Cirrhosis: No Hx Alcoholism: No Hx HIV/AIDS: No Hx Splenectomy or Spleen Trauma: No Other PMH: chf,angina,rls,arthritis,peripheral neuropathy,a-fib,copd,insomnia, stent, pacemaker, total knee replacement, - Social History Smoking Status: Current every day smoker Constitutional: Initial Vital Signs Temperature (C) 36.1 C 04/09/17 10:00 Heart Rate 70 04/09/17 10:00 Respiratory Rate 22 H 04/09/17 10:00 Blood Pressure 142/61 H 04/09/17 10:00 O2 Sat (%) 100 04/09/17 10:00 O2 Delivery Mode Nasal Cannula O2 (L/minute) 4 Allergies/Adverse Reactions: No Known Allergies Allergy (Verified 01/29/14 20:37) Home Medications: Medication Instructions Recorded Albuterol [Proventil Inhaler HFA 1 - 2 puffs IH DAILY PRN 04/09/17 (*)] Aspirin EC [Aspirin EC 81 mg (*)] 81 mg PO DAILY 04/09/17 Bisoprolol Fumarate [Zebeta (*)] 5 mg PO BID 04/09/17 Brimonidine 0.15% [ALPHAGAN P 1 drops EACHEYE BID 04/09/17 0.15% (RX)] Docusate Sodium [Colace 100 MG (*)] 200 mg PO BID 04/09/17 Dronedarone HCl [Multaq 400 mg (*)] 400 mg PO BIDMEAL 04/09/17 Fluticasone/Salmeter 500/50Mcg 1 puffs IH DAILY 04/09/17 [Advair 500/50 (*)] Furosemide [Lasix 40 MG (*)] 40 mg PO DAILY16 04/09/17 Furosemide [Lasix 40 MG (*)] 80 mg PO DAILY 04/09/17 Gabapentin [Neurontin 400 MG (*)] 1,200 mg PO QID@08,12,16,20 04/09/17 Latanoprost 0.005% [Xalatan 0.005% 1 drops EACHEYE HS 04/09/17 (*)] Levalbuterol 1.25 mg [Xopenex 1.25 mg IH QID PRN 04/09/17 1.25MG Neb (*)] Pantoprazole Sodium [Protonix 40mg 40 mg PO DAILY 04/09/17 (*)] Pramipexole Di-HCl [Mirapex] 0.5 - 1 mg PO HS 04/09/17 Rivaroxaban [Xarelto 10mg (*)] 20 mg PO HS 04/09/17 Spironolactone [Aldactone 25 MG 25 - 50 mg PO BID 04/09/17 (*)] Tiotropium Inhaler [Spiriva 18 mcg IH DAILY 04/09/17 Handihaler] celeCOXIB [Celebrex (*)] 200 mg PO HS 04/09/17 methYLPHENIDATE HCL [Ritalin 10mg 10 mg PO BID@12,16 04/09/17 (*)] methYLPHENIDATE HCL [Ritalin 10mg 20 mg PO DAILY 04/09/17 (*)] predniSONE 5 mg PO DAILY 04/09/17 traMADol [Ultram 50 mg (*)] 100 mg PO QID@08,12,16,20 04/09/17 Medical Decision Making - Diagnostics EKG Interpretation: 12-LEAD EKG: Please see the full report in Trace Master. My interpretation: Atrial paced complexes Imaging Results: Imaging Impressions Chest X-Ray 04/09/17 10:20 Impression: Peribronchial thickening and mild pulmonary venous hypertension with no focal infiltrate. Imaging: I viewed and interpreted images myself ED Course/Re-evaluation: 76-year-old female with a history of CAD and COPD presents via EMS hypoxic and short of breath. I reviewed her past medical notes. She was last admitted 03/20 and discharged 03/25. On exam she has crackles at both bases and anteriorly on the left. She has wheezes on the right. She has been placed on bi pap and her condition has improved. She has been given a DuoNeb breathing treatment. An IV was established and labs ordered. Chest x-ray ordered. Plan for admission. 125mg IV Solu-Medrol administered. X-ray of the chest was obtained. I viewed the images myself on the PACS system. My interpretation of the images is: no pneumonia. Narrow subglottic area. The radiologist interpretation is pending at this time. Patient's laboratory evaluation is remarkable for significant CO2 retention. No pneumonia. Patient clearly requires supportive respiratory care with ongoing nebs. 1204: Consulted with hospitalist. Dr. Alford accepts admission to med/surg. Differential Diagnosis: Differential diagnosis for the patient's shortness of breath was considered including but not limited to pulmonary infectious processes, COPD exacerbation, pulmonary emboli, pulmonary edema, congestive heart failure, and cardiac causes. Consult/Admit Bed Type: Dr. Alford, [facility] surg - Data Points Laboratory Results: Laboratory Results 04/09/17 10:21 04/09/17 10:21 04/09/17 04/09/17 04/09/17 10:26 10:21 10:21 WBC RBC Hgb POC Hgb Hct POC Hct MCV MCH MCHC RDW Plt Count MPV Neut % (Auto) Lymph % (Auto) [place] % (Auto) Eos % (Auto) Baso % (Auto) Nucleat RBC Rel Count Absolute Neuts (auto) Absolute Lymphs (auto) Absolute Monos (auto) Absolute Eos (auto) Absolute Basos (auto) Absolute Nucleated RBC Immature Gran % Immature Gran # Platelet Estimate Polychromasia Hypochromasia Basophilic Stippling Smear Review By Puncture Site LEFT RADIAL Patient Temperature 36.0 DEGREES DEGREES pCO2 71 mmHg H* mmHg (34-38) pO2 76 mmHg H mmHg (65-75) Total CO2 39 mEq/L H mEq/L (23-27) ABG pH 7.32 L (7.35-7.45) ABG PO2/FiO2 Ratio 190 RATIO RATIO ABG HCO3 36 mEq/L H mEq/L (22-26) ABG O2 Saturation 96 % H % (92-95) ABG Base Excess 8.2 mEq/L H mEq/L (-2.5-2.5) O2 Concentration % 40 % % (0-100) Expiratory Pressure 5 Inspiratory Pressure 18 Pressure Support 13 Mode BiPAP YES POC Sodium Sodium 137 mEq/L mEq/L (134-144) POC Potassium Potassium 5.9 mEq/L H mEq/L (3.5-5.2) POC Chloride Chloride 99 mEq/L mEq/L (97-110) Carbon Dioxide 34 mEq/l H mEq/l (22-31) Anion Gap 4 mEq/L L mEq/L (8-16) POC BUN BUN 17 mg/dL mg/dL (7-23) Creatinine 0.5 mg/dL L mg/dL (0.6-1.0) POC Creatinine Estimated GFR > 60 Glucose 78 mg/dL mg/dL (70-100) POC Glucose Calcium 8.5 mg/dL mg/dL (8.5-10.4) Total Bilirubin 0.4 mg/dL mg/dL (0.1-1.4) Conjugated Bilirubin 0.3 mg/dL mg/dL (0.0-0.5) Unconjugated Bilirubin 0.1 mg/dL mg/dL (0.0-1.1) AST 31 IU/L IU/L (14-46) ALT 40 IU/L IU/L (9-52) Alkaline Phosphatase 43 IU/L IU/L (38-126) Troponin I < 0.012 ng/mL ng/mL (0-0.034) NT-Pro-B Natriuret Pep 390 pg/mL pg/mL (0-450) Total Protein 4.2 g/dL L g/dL (6.3-8.2) Albumin 2.3 g/dL L g/dL (3.5-5.0) Specimen Hemolysis 212 04/09/17 04/09/17 10:21 10:15 WBC 5.00 10^3/uL 10^3/uL (3.80-9.50) RBC 4.27 10^6/uL 10^6/uL (4.18-5.33) Hgb 11.3 g/dL L g/dL (12.6-16.3) POC Hgb 10.2 gm/dL L gm/dL (12.6-16.3) Hct 39.7 % % (38.0-47.0) POC Hct 30 % L % (38-47) MCV 93.0 fL fL (81.5-99.8) MCH 26.5 pg L pg (27.9-34.1) MCHC 28.5 g/dL L g/dL (32.4-36.7) RDW 14.5 % % (11.5-15.2) Plt Count 126 10^3/uL L 10^3/uL (150-400) MPV 10.9 fL fL (8.7-11.7) Neut % (Auto) 82.4 % H % (39.3-74.2) Lymph % (Auto) 8.6 % L % (15.0-45.0) [place] % (Auto) 7.6 % % (4.5-13.0) Eos % (Auto) 0.6 % % (0.6-7.6) Baso % (Auto) 0.2 % L % (0.3-1.7) Nucleat RBC Rel Count 0.0 % % (0.0-0.2) Absolute Neuts (auto) 4.12 10^3/uL 10^3/uL (1.70-6.50) Absolute Lymphs (auto) 0.43 10^3/uL L 10^3/uL (1.00-3.00) Absolute Monos (auto) 0.38 10^3/uL 10^3/uL (0.30-0.80) Absolute Eos (auto) 0.03 10^3/uL 10^3/uL (0.03-0.40) Absolute Basos (auto) 0.01 10^3/uL L 10^3/uL (0.02-0.10) Absolute Nucleated RBC 0.00 10^3/uL 10^3/uL (0-0.01) Immature Gran % 0.6 % % (0.0-1.1) Immature Gran # 0.03 10^3/uL 10^3/uL (0.00-0.10) Platelet Estimate DECREASED L (ADEQ) Polychromasia 1+ H Hypochromasia 2+ H Basophilic Stippling 1+ H Smear Review By Pending Puncture Site Patient Temperature pCO2 pO2 Total CO2 ABG pH ABG PO2/FiO2 Ratio ABG HCO3 ABG O2 Saturation ABG Base Excess O2 Concentration % Expiratory Pressure Inspiratory Pressure Pressure Support Mode BiPAP POC Sodium 146 mEq/L H mEq/L (134-144) Sodium POC Potassium 4.3 mEq/L mEq/L (3.3-5.0) Potassium POC Chloride 102 mEq/L mEq/L (97-110) Chloride Carbon Dioxide Anion Gap POC BUN 15 mg/dL mg/dL (7-23) BUN Creatinine POC Creatinine 0.5 mg/dL L mg/dL (0.6-1.0) Estimated GFR Glucose POC Glucose 71 mg/dL mg/dL (70-100) Calcium Total Bilirubin Conjugated Bilirubin Unconjugated Bilirubin AST ALT Alkaline Phosphatase Troponin I NT-Pro-B Natriuret Pep Total Protein Albumin Specimen Hemolysis Medications Given: Discontinued Medications Methylprednisolone Sodium Succinate (Solu-Medrol) 125 mg IVP EDNOW ONE Stop: 04/09/17 10:43 Last Admin: 04/09/17 10:43 Dose: 125 mg Methylprednisolone Sodium Succinate (Solu-Medrol) 125 mg IVP EDNOW ONE Stop: 04/09/17 10:37 Last Admin: 04/09/17 11:12 Dose: Not Given Point of Care Test Results: 04/09/17 10:15 POC Sodium 146 H POC Potassium 4.3 POC Chloride 102 POC BUN 15 POC Creatinine 0.5 L POC Glucose 71 Departure - Dep[facility] [place] Clinical Impression: COPD exacerbation, Hypoxia, Respiratory distress Condition: Fair Report Scribed for: Gail Izaguirre Report Scribed by: Miguel Angeles Date of Report: 04/09/17 Time of Report: 10:36
[2017-04-09 10:34] LABS: BASE EXCESS 8.2 mEq/L (-2.5-2.5); BICARBONATE 36 mEq/L (22-26); MEASURED OXYGEN SATURATION 96 % (92-95); PO2 76 mmHg (65-75); TCO2 39 mEq/L (23-27)
[2017-04-09] MEDS ORDERED: methylPREDNISolone SOD SUCC 125 MG/2 ML VIAL IVP ONE ×2 (10:36→10:42)
[2017-04-09 10:37] LABS: % IMMATURE GRANULYOCYTES 0.6 % (0.0-1.1); ABSOLUTE IMMATURE GRANULOCYTES 0.03 10^3/uL (0.00-0.10); ADD DIFF? NO; ADD MORPH? YES; ADD SCAN? NO; ATYPICAL LYMPHOCYTE FLAG 0 (0-99); FRAGMENT RBC FLAG 0 (0-99); HEMATOCRIT 39.7 % (38.0-47.0); HEMOGLOBIN 11.3 g/dL (12.6-16.3); LEFT SHIFT FLG 10 (0-99); LIPEMIA HEMOLYSIS FLAG 70 (0-99); MEAN CELL HEMOGLOBIN 26.5 pg (27.9-34.1); MEAN PLATELET VOLUME 10.9 fL (8.7-11.7); PLATELET CLUMPS FLAG 50 (0-99); PLATELET COUNT 126 10^3/uL (150-400); RED BLOOD CELL COUNT 4.27 10^6/uL (4.18-5.33); RED CELL DISTRIBUTION WIDTH 14.5 % (11.5-15.2)
[2017-04-09] MEDS ORDERED: IPRATROPIUM/ALBUTEROL 3 ML DEYVIAL ONE (10:37)
[2017-04-09 10:38] LABS: MEAN CELL HEMOGLOBIN CONCENTR. 28.5 g/dL (32.4-36.7)
[2017-04-09 10:38] LABS: BIPAP YES; EXP PRESSURE 5; INSP PRESSURE 18; O2 CONCENTRATIION 40 % (0-100); P/F RATIO 190 RATIO; PRESSURE SUPPORT 13
[2017-04-09 10:39] LABS: PCO2 71 mmHg (34-38)
[2017-04-09] MEDS ORDERED: methylPREDNISolone SOD SUCC 125 MG/2 ML VIAL ONE (10:39)
[2017-04-09 10:55] LABS: ALANINE AMINOTRANSFERASE 40 IU/L (9-52); ALBUMIN 2.3 g/dL (3.5-5.0); ALKALINE PHOSPHATASE 43 IU/L (38-126); ASPARTATE AMINOTRANSFERASE 31 IU/L (14-46); BILIRUBIN,TOTAL 0.4 mg/dL (0.1-1.4); BILIRUBIN-CONJUGATED 0.3 mg/dL (0.0-0.5); BILIRUBIN-UNCONJUGATED 0.1 mg/dL (0.0-1.1); TOTAL PROTEIN 4.2 g/dL (6.3-8.2)
[2017-04-09 10:56] LABS: ANION GAP 4 mEq/L (8-16); CALCIUM 8.5 mg/dL (8.5-10.4); CARBON DIOXIDE 34 mEq/l (22-31); CHLORIDE 99 mEq/L (97-110); CREATININE 0.5 mg/dL (0.6-1.0); GLOMERULAR FILTRATION RATE > 60; GLUCOSE 78 mg/dL (70-100); POTASSIUM 5.9 mEq/L (3.5-5.2); SODIUM 137 mEq/L (134-144)
--- NOTE | 2017-04-09 10:57 | CPEKG ---
Heart Rate: 70 RR Interval: 857 P-R Interval: 142 QRSD Interval: 104 QT Interval: 392 QTC Interval: 423 P [place]: 66 QRS [place]: 1 T Wave [place]: 61 EKG Severity - ABNORMAL ECG - EKG Impression: ATRIAL-PACED COMPLEXES EKG Impression: PROBABLE LEFT ATRIAL ABNORMALITY Electronically Signed By: Gail Izaguirre 09-Apr-2017 18:14:54
[2017-04-09 10:58] LABS: SPECIMEN HEMOLYSIS 212
[2017-04-09 11:07] LABS: TROPONIN I < 0.012 ng/mL (0-0.034)
[2017-04-09 11:30] LABS: HYPOCHROMIA 2+; PLATELET ESTIMATE DECREASED (ADEQ); POLYCHROMASIA 1+
[2017-04-09] MEDS ORDERED: IPRATROPIUM/ALBUTEROL 3 ML DEYVIAL IH PRN (14:55)
[2017-04-09] MEDS ORDERED: ACETAMINOPHEN 325 MG TAB PO PRN (14:55)
[2017-04-09] MEDS ORDERED: LEVALBUTEROL 1.25 MG/3 ML DEYVIAL IH PRN (15:06)
--- NOTE | 2017-04-09 15:30 | GHP ---
[f rep st] HISTORY AND PHYSICAL DATE OF ADMISSION: 04/09/2017 CHIEF COMPLAINT: Shortness of breath. HISTORY OF PRESENT ILLNESS: This is a 76-year-old female with history of chronic respiratory failur e due to COPD with history of coronary artery disease, right coronary artery stent placement and atr ial fibrillation who was discharged from [facility] on 03/25/2017 after being treated for acute CO2 narcosis from acute on chronic hypoxemic respiratory failure. The patient presented to the hospital today with worsening shortness of breath. She awoke without h er oxygen on, was noted to have a room air oxygen saturation of 52%. This was not associated with a ny chest pain. She denies any significant cough. She denies any fevers or chills. She has been ea ting normally. She denies any aspiration. She denies any wheezing. She says she is compliant with her home medications and oxygen. PAST MEDICAL HISTORY: 1. Hospitalization in February of 2017 for acute CO2 narcosis due to acute on chronic hypercarbic respir atory failure. 2. Coronary artery disease with right coronary artery stent. 3. Atrial fibrillation. 4. Pacemaker placement. 5. Peripheral neuropathy. 6. Osteoarthritis. 7. Chronic pain syndrome. 8. Appendectomy. 9. Tonsillectomy. HOME MEDICATIONS: 1. Reviewed in [employer]. Refer to [employer] for details. ALLERGIES: No known drug allergies. SOCIAL HISTORY: She is and lives with her in [facility]. 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 Still smokes occasionally. She denies any alcohol use. FAMILY HISTORY: Reviewed and noncontributory. REVIEW OF SYSTEMS: Comprehensive 10-point Review of Systems was done and is negative, except for as mentioned in the HPI. PHYSICAL EXAM: VITAL SIGNS: Blood pressure 141/64, pulse of 81, respiratory rate 22, O2 saturation 94% on 4 L nasal cannula. Temperature afebrile. GENERAL: Chronically ill appearing. HEAD: Norm ocephalic, atraumatic. EYES: PERRLA. Sclerae anicteric. MOUTH: Moist mucous membranes. NECK: Supple. No lymphadenopathy. CARDIOVASCULAR: S1 and S2, no JVD. No lower extremity edema. PULMON HEATHER: Bilateral expiratory wheezes with significantly diminished breath sounds bilaterally. There a re no rhonchi. The patient does have some pursed lip breathing and some signs of mild respiratory d istress. ABDOMEN: Soft, nontender, nondistended. No guarding or rebound tenderness. Normoactive bowel sounds. EXTREMITIES: No clubbing or cyanosis. NEURO: Cranial nerves 2 through 12 grossly i ntact. No focal motor or sensory deficits. SKIN: Clear, no rashes. DIAGNOSTICS: WBC 5, hemoglobin 11.3, hematocrit 39.7, platelets 126. Sodium 137, potassium 5.9, ch loride 99, CO2 34, BUN 17, creatinine 0.5, glucose 78. LFTs are unremarkable. Troponin was less th an 0.012. Albumin 2.3, total protein 4.2. EKG: Which I visualized and personally interpreted, shows atrial paced rhythm 70 beats per minute, no acute ischemic changes. Chest x-ray, which I also visualized and personally interpreted, shows peribronchial thickening and mild pulmonary venous hypertension. No focal infiltrate. ASSESSMENT AND PLAN: This is a 76-year-old female with history of chronic respiratory failure due t o chronic obstructive pulmonary disease presenting with: Acute on chronic respiratory failure due to suspected mild chronic obstructive pulmonary disease exa cerbation in the setting of spending the night off of oxygen unintentionally. PLAN: The patient will be admitted to the hospital where she will be treated with oral prednisone. We will defer starting antibiotics at this time. She will be monitored with continuous pulse oxime try. The patient requests to be DNR status and would not want to be intubated or resuscitated. /[id number]/MODL
[2017-04-09] MEDS ORDERED: FUROSEMIDE 40 MG TAB PO SCH (16:00)
[2017-04-09] MEDS: predniSONE 20 MG TAB PO SCH (16:13)
[2017-04-09] MEDS: GABAPENTIN 400 MG CAP PO SCH ×2 (16:15→22:03)
[2017-04-09] MEDS: traMADol 50 MG TAB PO PRN ×2 (16:21→22:08)
[2017-04-09] MEDS: DRONEDARONE HCL 400 MG TAB PO SCH (17:47)
[2017-04-09] MEDS ORDERED: LATANOPROST 0.005% 2.5 ML OPHT DROPS EACHEYE SCH (21:00)
[2017-04-09] MEDS ORDERED: SPIRONOLACTONE 25 MG TAB PO SCH (21:00)
[2017-04-09] MEDS ORDERED: PRAMIPEXOLE 1 MG TAB PO SCH (21:00)
[2017-04-09] MEDS ORDERED: PRAMIPEXOLE DI HCL PO SCH (21:00)
[2017-04-09] MEDS ORDERED: RIVAROXABAN 10 MG TAB PO SCH (21:00)
[2017-04-09] MEDS: DOCUSATE SODIUM 100 MG CAP PO SCH (22:03)
[2017-04-09] MEDS: BISOPROLOL FUMARATE 5 MG TAB PO SCH (22:03)
[2017-04-09] MEDS: BRIMONIDINE 0.15% 5 ML OPHT.BTL EACHEYE SCH (22:04)
[2017-04-10 04:32] LABS: % IMMATURE GRANULYOCYTES 0.2 % (0.0-1.1); ABSOLUTE IMMATURE GRANULOCYTES 0.01 10^3/uL (0.00-0.10); ADD DIFF? NO; ADD MORPH? NO; ADD SCAN? NO; ATYPICAL LYMPHOCYTE FLAG 0 (0-99); FRAGMENT RBC FLAG 0 (0-99); HEMATOCRIT 36.9 % (38.0-47.0); HEMOGLOBIN 10.7 g/dL (12.6-16.3); LEFT SHIFT FLG 10 (0-99); LIPEMIA HEMOLYSIS FLAG 70 (0-99); MEAN CELL HEMOGLOBIN 26.4 pg (27.9-34.1); MEAN CELL VOLUME 90.9 fL (81.5-99.8); MEAN PLATELET VOLUME 10.5 fL (8.7-11.7); PLATELET CLUMPS FLAG 0 (0-99); PLATELET COUNT 138 10^3/uL (150-400); RED BLOOD CELL COUNT 4.06 10^6/uL (4.18-5.33); RED CELL DISTRIBUTION WIDTH 14.4 % (11.5-15.2)
[2017-04-10 04:57] LABS: ANION GAP 6 mEq/L (8-16); CALCIUM 8.6 mg/dL (8.5-10.4); CARBON DIOXIDE 33 mEq/l (22-31); CHLORIDE 96 mEq/L (97-110); CREATININE 0.7 mg/dL (0.6-1.0); GLOMERULAR FILTRATION RATE > 60; GLUCOSE 148 mg/dL (70-100); POTASSIUM 4.8 mEq/L (3.5-5.2); SODIUM 135 mEq/L (134-144)
[2017-04-10] MEDS: GABAPENTIN 400 MG CAP PO SCH ×2 (06:16→14:40)
[2017-04-10] MEDS: traMADol 50 MG TAB PO PRN (06:16)
[2017-04-10 07:08] VITALS: BP 134/57; PULSE 70; RESP 20; TEMP 98.2; O2SAT 93
[2017-04-10] MEDS ORDERED: ENOXAPARIN 40 MG/0.4 ML SYR SC SCH (09:00)
[2017-04-10] MEDS ORDERED: FUROSEMIDE 40 MG TAB PO SCH (09:00)
[2017-04-10] MEDS ORDERED: TIOTROPIUM INHALER 18 MCG/DOSE 5 DOSE/MDI IH SCH (09:00)
[2017-04-10] MEDS ORDERED: PANTOPRAZOLE SODIUM 40 MG TAB PO SCH (09:00)
[2017-04-10] MEDS: BISOPROLOL FUMARATE 5 MG TAB PO SCH (09:00)
[2017-04-10] MEDS ORDERED: ASPIRIN EC 81 MG TAB PO SCH (09:00)
[2017-04-10] MEDS ORDERED: FLUTICASONE/SALMETER 500/50MCG DISKUS IH SCH (09:00)
[2017-04-10] MEDS: DOCUSATE SODIUM 100 MG CAP PO SCH (09:01)
[2017-04-10] MEDS: predniSONE 20 MG TAB PO SCH (09:01)
[2017-04-10] MEDS: BRIMONIDINE 0.15% 5 ML OPHT.BTL EACHEYE SCH (09:02)
[2017-04-10] MEDS: DRONEDARONE HCL 400 MG TAB PO SCH (09:19)
--- NOTE | 2017-04-10 19:29 | GDS ---
[f rep st] DISCHARGE SUMMARY DISCHARGE DIAGNOSES: 1. Transient hypoxemia due to lack of supplemental oxygen. 2. Advanced chronic obstructive pulmonary disease with chronic hypercarbia. 3. Coronary artery disease, status post stent. 4. Atrial fibrillation with pacemaker. HISTORY: The patient is a 76-year-old female with advanced COPD and chronic respiratory failure req uiring 2 L of oxygen continuously. She presented to the hospital after inadvertently taking off her oxygen while sleeping. Room air saturation was at that time 52% and she was short of breath. She presented to the emergency room. Since resuming her usual oxygen, she has returned rapidly back to baseline. Nothing acute was found and I suspect this period without supplemental oxygen led to her presentation but she is rapidly back to baseline. I tried to troubleshoot with her and her ways in which she can avoid inadvertently removing oxygen at home while sleeping in the future. DISCHARGE MEDICATIONS: Please see computerized record for full detailed list. There were no change s made to her usual medications. ADDITIONAL DISCHARGE INSTRUCTIONS: Re-evaluate sleeping situation and troubleshoot potential factor s leading to agitation while sleeping with oxygen removal. Patient was seen and examined by me on the day of discharge. /[id number]/MODL
== END 2017-04-10 12:35 | disposition home health service (06) | DRG 191 ==
LOC: EDUNIT# → F2W 13:27 → OBSVTOIN 14:54
PROVIDERS: ADMIT Family Medicine; ATTEND Internal Medicine
DX: J44.1 Chronic obstructive pulmonary disease with (acute) exacerbation (principal); J96.12 Chronic respiratory failure with hypercapnia; I25.10 Atherosclerotic heart disease of native coronary artery without angina pectoris; G62.9 Polyneuropathy, unspecified; I48.91 Unspecified atrial fibrillation; Z99.81 Dependence on supplemental oxygen; Z95.5 Presence of coronary angioplasty implant and graft; Z95.0 Presence of cardiac pacemaker; Z66 Do not resuscitate; Z96.659 Presence of unspecified artificial knee joint
CPT/HCPCS: 82947-QW; 96374; 97165-GO; G8987-GO-CI; G8988-GO-CI; G8989-GO-CI

== ENCOUNTER → 2017-04-14 | Outpatient (CLI) | payer OTHER | LOC: BHFA 14:45 | PROVIDERS: ATTEND Internal Medicine Cardiovascular Disease | DX: I48.91 Unspecified atrial fibrillation (principal); I25.10 Atherosclerotic heart disease of native coronary artery without angina pectoris ==

== ENCOUNTER 2018-01-06 12:50 | Inpatient (IN) | payer OTHER ==
--- NOTE | 2018-01-06 16:17 | CPEKG ---
Heart Rate: 104 RR Interval: 577 QRSD Interval: 110 QT Interval: 492 QTC Interval: 648 QRS [place]: 66 T Wave [place]: 112 EKG Severity - ABNORMAL ECG - EKG Impression: AFIB/FLUT AND V-PACED COMPLEXES EKG Impression: OCCASIONAL VENTRICULAR PACED RHYTHM Electronically Signed By: Meño Ko 07-Jan-2018 06:30:36
[2018-01-06] MEDS ORDERED: SOTALOL HCL 80 MG TAB PO ONE (16:48)
[2018-01-06] MEDS ORDERED: LOSARTAN POTASSIUM 25 MG TAB PO SCH (17:00)
--- NOTE | 2018-01-06 17:05 | PDCARPN ---
Cardiology Progress Note Chief Complaint: Afl RVR Assessment/Plan: Assessment: 77F PMH CHRF, PAFl, SSS s/p ppm, severe COPD, CAD/ PCI RCA 2009, admitted for Sotalol titration. #. Afl with RVR: start Sotalol today resume Xarelto for possible DCCV prior to D/C #. CAD: no symptoms suggestive of angina continue med management #. DCHF: continue Lasix may need some doses of IV Lasix while inpt #. Inpt status: admitted for high-risk med titration which will require >48 hours Plan: 01/06/18 17:02 Subjective: Feels ok. Objective: Vital Signs (8 Hrs) Temp Pulse Resp BP Pulse Ox 01/06/18 16:09 98.4 F 133 H 18 184/110 H 98 Intake/Output (24 Hrs) 01/05/18 01/06/18 01/07/18 05:59 05:59 05:59 Other: Weight 60.9 kg Result Diagrams: 01/06/18 16:30 01/06/18 16:30 - Physical Exam Constitutional: no apparent distress Ears, Nose, Mouth, Throat: moist mucous membranes Cardiovascular: other (tachy) Respiratory: clear to auscultate bilat, reduced air movement Gastrointestinal: normoactive bowel sounds Skin: other (2+ edema) Psychiatric: cooperative, interactive ICD10 Worksheet Patient Problems: Problems Problem Status Onset Acute dyspnea Acute COPD exacerbation Acute Chronic Disease Mgmt/Transitional Care Acute Hypoxia Acute Near syncope Acute
[2018-01-06 17:09] LABS: PLATELET COUNT 164 10^3/uL (150-400)
[2018-01-06 17:24] LABS: PROTIME(PATIENT) 13.4 SEC (12.0-15.0)
[2018-01-06] MEDS: amLODIPine BESYLATE 5 MG TAB PO SCH (17:31)
[2018-01-06] MEDS ORDERED: LEVALBUTEROL 1.25 MG/3 ML DEYVIAL IH PRN (20:49)
[2018-01-06] MEDS ORDERED: ALBUTEROL 60 PUFFS/8 GM MDI IH PRN (20:49)
--- NOTE | 2018-01-06 20:49 | CPEKG ---
Heart Rate: 93 RR Interval: 645 QRSD Interval: 112 QT Interval: 396 QTC Interval: 493 QRS [place]: 40 T Wave [place]: 243 EKG Severity - ABNORMAL ECG - EKG Impression: AF EKG Impression: OCCASIONAL PACED VENTRICULAR BEATS Electronically Signed By: Meño Ko 07-Jan-2018 06:29:34
[2018-01-06] MEDS: PRAMIPEXOLE 0.25 MG TAB PO PRN (21:25)
[2018-01-06] MEDS: GABAPENTIN 300 MG CAP PO SCH (21:25)
[2018-01-06] MEDS: LATANOPROST 0.005% 2.5 ML OPHT DROPS EACHEYE SCH (21:27)
[2018-01-06] MEDS: BRIMONIDINE 0.15% 5 ML OPHT.BTL EACHEYE SCH (21:27)
[2018-01-07 05:33] LABS: INR 0.95 (0.83-1.16); PROTIME(PATIENT) 12.9 SEC (12.0-15.0)
[2018-01-07] MEDS: GABAPENTIN 300 MG CAP PO SCH ×3 (07:56→20:31)
[2018-01-07] MEDS: FUROSEMIDE 40 MG TAB PO SCH ×2 (07:56→15:27)
[2018-01-07] MEDS: LOSARTAN POTASSIUM 25 MG TAB PO SCH (07:57)
[2018-01-07] MEDS: PANTOPRAZOLE SODIUM 40 MG TAB PO SCH (07:57)
[2018-01-07] MEDS: ATORVASTATIN CALCIUM 10 MG TAB PO SCH (07:57)
[2018-01-07] MEDS: amLODIPine BESYLATE 5 MG TAB PO SCH (07:57)
[2018-01-07] MEDS: SPIRONOLACTONE 25 MG TAB PO SCH ×2 (07:57→15:27)
[2018-01-07] MEDS: BRIMONIDINE 0.15% 5 ML OPHT.BTL EACHEYE SCH ×2 (07:58→22:04)
[2018-01-07] MEDS ORDERED: METOPROLOL SUCCINATE XR 25 MG TAB PO SCH (09:00)
[2018-01-07] MEDS ORDERED: FLUTICASONE/SALMETER 500/50MCG DISKUS IH SCH (09:00)
[2018-01-07] MEDS ORDERED: TIOTROPIUM INHALER 18 MCG/DOSE 5 DOSE/MDI IH SCH (09:00)
[2018-01-07] MEDS: SOTALOL HCL 80 MG TAB PO SCH ×2 (09:23→21:59)
--- NOTE | 2018-01-07 10:25 | CPEKG ---
Heart Rate: 92 RR Interval: 652 QRSD Interval: 112 QT Interval: 428 QTC Interval: 530 QRS [place]: 38 T Wave [place]: 238 EKG Severity - ABNORMAL ECG - EKG Impression: AFIB/FLUT AND V-PACED COMPLEXES Electronically Signed By: Meño Ko 07-Jan-2018 10:58:09
--- NOTE | 2018-01-07 10:43 | PDMN ---
Medical Necessity Medical necessity: est los>2mn for aflutter/RVR for Sotalol loading, high risk medication requiring >48 hr admission; comorbid CAD, DCHF; per order and cardiology note 01/06/18
--- NOTE | 2018-01-07 11:36 | CPEKG ---
Heart Rate: 60 RR Interval: 1000 P-R Interval: 164 QRSD Interval: 100 QT Interval: 420 QTC Interval: 420 QRS [place]: 32 T Wave [place]: 52 EKG Severity - ABNORMAL ECG - EKG Impression: ATRIAL-PACED RHYTHM EKG Impression: INCOMPLETE RBBB EKG Impression: LOW VOLTAGE THROUGHOUT Electronically Signed By: Meño Ko 07-Jan-2018 13:02:49
[2018-01-07] MEDS: ASPIRIN EC 81 MG TAB PO SCH (12:16)
--- NOTE | 2018-01-07 13:06 | PDCARPN ---
Cardiology Progress Note Chief Complaint: Afl RVR Assessment/Plan: Assessment: 77-year-old female with COPD on supplemental oxygen, chronic hypercarbic respiratory failure, coronary disease with a history of RCA stenting in 2010, CVA, paroxysmal atrial fibrillation and sick sinus syndrome with pacemaker, non flow-limiting carotid disease and pulmonary hypertension. Admitted for Sotalol titration. #. Afl with RVR: converted to SR not on AC due to falls but can be reconsidered spoke with Dr. Lynch who feels patient could be an appropriate Afl ablation candidate #. CAD: no symptoms suggestive of angina continue med management #. htn: BP very elevated on arrival but now improved continue current management #COPD: at baseline O2 needs #. hypercarbic respiratory failure: high CO2 ? if this is baseline pt quite somnolent in exam will obtain hospitalist consult for their assistance in management #. DCHF: continue Lasix may need some doses of IV Lasix while inpt #. Inpt status: admitted for high-risk med titration which will require >48 hours Plan: Continue Sotalol Hospitalist consult 01/07/18 13:40 Subjective: Very fatigued. Has not ambulated. Objective: Vital Signs (8 Hrs) Temp Pulse Resp BP Pulse Ox 01/07/18 10:59 97.9 F 60 20 96/46 L 93 01/07/18 07:35 97.9 F 60 20 105/58 L 93 01/07/18 05:51 60 16 95 Intake/Output (24 Hrs) 01/06/18 01/07/18 01/08/18 05:59 05:59 05:59 Intake Total 600 Output Total 900 Balance -300 Intake: Oral (ml) 600 Output: Urine (ml) 900 Toilet 900 Other: Weight 60.9 kg Number of Voids Toilet 1 Result Diagrams: 01/06/18 16:30 01/07/18 05:13 EKG: A paced, low voltage, iRBBB Telemetry: reviewed, A-paced - Physical Exam Constitutional: no apparent distress Eyes: anicteric sclera Cardiovascular: regular rate and rhythm Respiratory: reduced air movement Psychiatric: other (pt falls asleep in exam) ICD10 Worksheet Patient Problems: Problems Problem Status Onset Acute dyspnea Acute COPD exacerbation Acute Chronic Disease Mgmt/Transitional Care Acute Hypoxia Acute Near syncope Acute
--- NOTE | 2018-01-07 14:02 | ASMTCMCOM ---
CM Note CM Note Notes: Patient admitted for Sotalol titration. She may also be a candidate for AF ablation. She is normally independent, , and has supportive family in the area. OT has been ordered. Case Management will follow for any discharge needs. Date Signed: 01/07/2018 02:01 PM Electronically Signed By:Nette Sims RN
[2018-01-07] MEDS ORDERED: IPRATROPIUM/ALBUTEROL 3 ML DEYVIAL ONE (16:42)
[2018-01-07] MEDS: IPRATROPIUM/ALBUTEROL 3 ML DEYVIAL IH SCH ×3 (16:51→21:11)
--- NOTE | 2018-01-07 17:52 | GCON ---
[f rep st] CONSULTATION DATE OF CONSULTATION: 01/07/2018 REASON FOR CONSULTATION: Shortness of breath. HISTORY OF PRESENT ILLNESS: Ms. Mcdonnell is a 77-year-old female with a history of COPD and chronic hypercarbic respiratory failure, as well as chronic atrial fibrillation and coronary artery disease who was admitted to the hospital by the Cardiology service for sotalol induction. She has chronic hypercarbia with a baseline CO2 in the 30s, however, it was as high as 44 in July 2017, and continues to be in the mid 40s since admission yesterday. A blood gas was performed early this morning which revealed a pH of 7.26 and a pCO2 of 94. The patient complains of worsening shortness of breath. She denies orthopnea, though she does endorse increasing lower extremity edema. She states she has home BiPAP, but does not use it because she gets claustrophobic. Her baseline oxygen requirement is anywhere from 2 to 5 L of oxygen. She denies fevers or chills. She does have a slightly increased cough but denies sputum production. She denies chest pain. Thus far, she is tolerating her sotalol. Her main concern right now is fatigue and shortness of breath. PAST MEDICAL HISTORY: 1. Chronic hypoxic hypercarbic respiratory failure secondary to COPD, on chronic oxygen 2 to 5 L/minute and home BiPAP, which she is not compliant with. 2. Coronary artery disease status post stenting in the right coronary. 3. Chronic atrial fibrillation with presence of a pacemaker. 4. Peripheral neuropathy. 5. Osteoarthritis. 6. Chronic diastolic heart failure. 7. Chronic pain. PAST SURGICAL HISTORY: Appendectomy, tonsillectomy. MEDICATIONS: Please see [employer] for complete outpatient medication list. ALLERGIES: She has no known drug allergies. FAMILY HISTORY: Reviewed and noncontributory. SOCIAL HISTORY: The patient is . She lives independently. She has a significant tobacco history and continues to smoke occasionally. She denies alcohol use. REVIEW OF SYSTEMS: A 10-point review of systems was performed, and is negative other than per HPI. OBJECTIVE: VITAL SIGNS: Temperature is 36.8, blood pressure 114/83, heart rate 75, respiratory rate 20, she is 99% on 3 L of oxygen by nasal cannula. GENERAL: The patient is awake, alert, and oriented, in no acute distress. HEENT : Head is atraumatic, normocephalic. Pupils are equal, round, and react to light. Extraocular motions intact. Oropharynx is clear. Mucous members are moist. NECK: Neck is supple. There is no JVD. HEART: Irregularly irregular. LUNGS: She has some faint crackles at the bases, right worse than left, with decreased air exchange, though I do not appreciate wheezes. ABDOMEN: Soft, nondistended, nontender with normoactive bowel sounds. EXTREMITIES: Without cyanosis, clubbing, or edema. She has ELIOT hose on. NEUROLOGIC: Grossly nonfocal. Her mentation seems clear despite her elevated pCO2. DIAGNOSTIC STUDIES: EKG this morning shows an incomplete right bundle branch block with an atrial paced rhythm. Her EKG on admission showed atrial fibrillation. IMAGING STUDIES: Chest x-ray is ordered stat and is currently pending. ASSESSMENT/PLAN: Ms. Mcdonnell is a 77-year-old female with multiple medical problems including chronic atrial fibrillation, chronic hypercarbic respiratory failure, and coronary artery disease, who is admitted to the hospital for sotalol induction by the Cardiology service. Medicine was consulted for shortness of breath. 1. Acute on chronic hypercarbic and hypoxemic respiratory failure. She seems to be acutely retaining pCO2 based on her pCO2 of 94, up from 54 in September 2017. I am going to repeat an ABG now and if she has persistently low pH and elevated pCO2, we will start BiPAP tonight. In addition, a chest x-ray and BNP are ordered (CXR shows RLL PNA c/w crackles on exam- start Ceftriaxone plus Doxy , defer Azithro to avoid QT prolongation given concomitant use of Sotalol). Also check a respiratory viral panel. Continue supplemental oxygen, schedule DuoNebs four times daily. I will defer steroids for now in the absence of wheezing, but will continue her outpatient Advair and change this to twice daily from daily. 2. Atrial fibrillation. She is currently undergoing sotalol titration managed by the Cardiology service. She is not on Xarelto secondary to falls. Some consideration is being given to ablation. Defer further management to Cardiology service. 3. Coronary artery disease status post stenting of the right coronary. She is currently chest pain free. Continue outpatient medications including aspirin, beta silas and statin. 4. Diastolic heart failure. Chest x-ray and BNP are pending as above. She appears slightly volume up and I've increased her Lasix to 60 mg BID (takes 60 qam, 20 qpm at home). She also may benefit from a dose of IV Lasix, but I would like to review her BNP and chest x-ray first. 5. Hypertension. She is currently normotensive. Continue spironolactone, losartan, sotalol, Lasix. 6. Peripheral neuropathy. Continue gabapentin. 7. Code status. Patient is full code. 8. Deep venous thrombosis prophylaxis. Start Lovenox. 9. Disposition. Patient is admitted to inpatient status as she will require greater than 48 hours hospitalization for ongoing management of her atrial fibrillation, sotalol induction, and acute on chronic hypercarbic respiratory failure. Thank you for this consultation. I will continue to follow her closely and please call with any questions or concerns. /[id number]/MODL MTDD
[2018-01-07] MEDS ORDERED: cefTRIAXone 1 GM in STERILE WATER INJ 10 ML IV SCH (19:15)
[2018-01-07] MEDS ORDERED: LEVALBUTEROL 1.25 MG/3 ML DEYVIAL IH PRN (19:15)
[2018-01-07] MEDS: DOXYCYCLINE HYCLATE 100 MG CAP/TAB PO SCH (20:37)
[2018-01-07] MEDS: traMADol 50 MG TAB PO SCH (22:00)
[2018-01-07] MEDS: PRAMIPEXOLE 0.25 MG TAB PO PRN (22:02)
[2018-01-07] MEDS: LATANOPROST 0.005% 2.5 ML OPHT DROPS EACHEYE SCH (22:04)
--- NOTE | 2018-01-07 22:53 | CPEKG ---
Heart Rate: 60 RR Interval: 1000 P-R Interval: 168 QRSD Interval: 160 QT Interval: 436 QTC Interval: 436 P [place]: -87 QRS [place]: 98 T Wave [place]: 32 EKG Severity - ABNORMAL ECG - EKG Impression: ATRIAL-PACED COMPLEXES EKG Impression: PROBABLE LEFT ATRIAL ABNORMALITY EKG Impression: INCOMPLETE RBBB Electronically Signed By: Meño Ko 08-Jan-2018 06:04:36
[2018-01-07] MEDS: FLUTICASONE/SALMETER 500/50MCG DISKUS IH SCH (23:09)
[2018-01-08 04:03] LABS: PLATELET COUNT 123 10^3/uL (150-400)
[2018-01-08] MEDS: IPRATROPIUM/ALBUTEROL 3 ML DEYVIAL IH SCH ×4 (05:47→20:35)
[2018-01-08] MEDS: DOXYCYCLINE HYCLATE 100 MG CAP/TAB PO SCH ×2 (08:16→21:14)
[2018-01-08] MEDS: SOTALOL HCL 80 MG TAB PO SCH ×2 (08:16→21:13)
[2018-01-08] MEDS: LOSARTAN POTASSIUM 25 MG TAB PO SCH (08:17)
[2018-01-08] MEDS: PANTOPRAZOLE SODIUM 40 MG TAB PO SCH (08:17)
[2018-01-08] MEDS: ATORVASTATIN CALCIUM 10 MG TAB PO SCH (08:17)
[2018-01-08] MEDS: FUROSEMIDE 40 MG TAB PO SCH ×2 (08:17→19:30)
[2018-01-08] MEDS: SPIRONOLACTONE 25 MG TAB PO SCH ×2 (08:17→16:43)
[2018-01-08] MEDS: GABAPENTIN 300 MG CAP PO SCH ×3 (08:27→21:17)
[2018-01-08] MEDS: traMADol 50 MG TAB PO SCH ×3 (08:45→21:15)
--- NOTE | 2018-01-08 09:07 | HOSPPROG ---
Hospitalist Progress Note Assessment/Plan: 77 yo female with h/o advanced COPD, CAD, diastolic HF, and A fib admitted for Sotalol induction. Found to have elevated CO2 levels from baseline as well as pneumonia, initiating bipap and atbx for CAP. Acute on chronic hypercarbic / hypoxemic respiratory failure in setting of advanced COPD and CAP - pCO2 yesterday 80's, but pH improved. She is only minimally tolerant of bipap. CXR personally reviewed / interp- RML PNA. -Cont Ceftriaxone / Doxy for CAP (suspect this was present prior to admission ), deferring Azithromycin due to risk of QT prolongation with Sotalol -cont QID duonebs, advair -deferring steroids, no wheezing -cont O2, at baseline requirement of 3 LPM -pt to "practice" with bipap today in hopes of tolerating better at night, follow serum CO2 -sputum culture pending A fib - pacemaker present, admitted for sotalol induction, not anticoagulated 2/ 2 falls. EKG atrial paced, incomplete RBBB. Cards managing, considering ablation. -cont asa, sotalol -further management / anticoagulation per cards CAD with prior stent of right coronary - chest pain free -cont asa, BB, statin Diastolic heart failure - seems a bit volume up -increased lasix to 60 mg BID -follow I&O's, daily weights Hypertension - cont current regimen Peripheral neuropathy - cont gabapentin Limited resuscitation - DNI DVT PPLX - start lovenox Dispo - cont inpt, CM to assist with help at home, PT/OT evals Subjective: Pt continues to feel weak, fatigued, SOB, with cough. No fevers. Having a harder time doing ADL's and home and 87 yo also debilitated. Needs more help. Doesn't use her bipap at home. No CP. Objective: Vital Signs Temp Pulse Resp BP Pulse Ox 36.9 C 66 18 129/52 H 88 L 01/08/18 07:56 01/08/18 07:56 01/08/18 07:56 01/08/18 07:56 01/08/18 07:56 Microbiology 01/07/18 16:30 Respiratory Panel (PCR) - Final Nasal, Sinus - Anaerobic Tube/Swab No Organism Detected Laboratory Results 01/08/18 03:38 01/08/18 03:38 03/01/08/18 01/09/18 05:59 05:59 05:59 Intake Total 600 150 Output Total 900 2100 Balance -300 -1950 PT 12.9 SEC (12.0-15.0) 01/07/18 05:13 INR 0.95 (0.83-1.16) 01/07/18 05:13 - Physical Exam Constitutional: no apparent distress Eyes: PERRL Ears, Nose, Mouth, Throat: moist mucous membranes Cardiovascular: regular rate and rhythym Respiratory: no respiratory distress, other (RLL crackles, no wheezing) Gastrointestinal: normoactive bowel sounds, soft, non-tender abdomen Skin: warm Musculoskeletal: generalized weakness Neurologic: AAOx3 Psychiatric: interacting appropriately ICD10 Worksheet Patient Problems: Problems Problem Status Onset Acute dyspnea Acute COPD exacerbation Acute Chronic Disease Mgmt/Transitional Care Acute Hypoxia Acute Near syncope Acute
[2018-01-08] MEDS: BRIMONIDINE 0.15% 5 ML OPHT.BTL EACHEYE SCH ×2 (10:10→21:18)
--- NOTE | 2018-01-08 10:25 | CPEKG ---
Heart Rate: 60 RR Interval: 1000 P-R Interval: 160 QRSD Interval: 102 QT Interval: 436 QTC Interval: 436 QRS [place]: 74 T Wave [place]: 69 EKG Severity - ABNORMAL ECG - EKG Impression: ATRIAL-PACED RHYTHM EKG Impression: BORDERLINE T ABNORMALITIES, ANT-LAT LEADS Electronically Signed By: Meño Ko 08-Jan-2018 12:33:46
[2018-01-08] MEDS: ENOXAPARIN 40 MG/0.4 ML SYR SC SCH (10:31)
[2018-01-08] MEDS: FLUTICASONE/SALMETER 500/50MCG DISKUS IH SCH ×2 (11:08→20:41)
[2018-01-08] MEDS: ASPIRIN EC 81 MG TAB PO SCH (11:59)
--- NOTE | 2018-01-08 14:12 | ASMTCMCOM ---
CM Note CM Note Notes: CM spoke w/ Dr. Evans regarding d/c POC. Dr. Evans has concerns about pts safety at home. Therapies have been ordered and awaiting recommendations. CM to follow. Plan: TBD Date Signed: 01/08/2018 02:12 PM Electronically Signed By:ARIANE Pope
--- NOTE | 2018-01-08 15:07 | PDCARPN ---
Cardiology Progress Note Chief Complaint: Afl Assessment/Plan: Assessment: 77-year-old female with COPD on supplemental oxygen, chronic hypercarbic respiratory failure, coronary disease with a history of RCA stenting in 2010, CVA, paroxysmal atrial fibrillation, sick sinus syndrome with pacemaker, non flow-limiting carotid disease and pulmonary hypertension. Admitted for Sotalol titration. #. Afl with RVR: converted to SR not on AC due to falls but can be reconsidered in outpatient setting has completed Sotalol titration #. CAD: no symptoms suggestive of angina continue med management #. htn: BP very elevated on arrival but now improved continue current management #COPD: at baseline O2 needs #. hypercarbic respiratory failure: high CO2 from COPD and now dx of CAP appreciate hospitalist input #. CAP: per hospital med/ appreciate Dr. Evans on abx #. DCHF: continue Lasix edema improved #. Inpt status: admitted for high-risk med titration which will require >48 hours and now dx of hypercarbic respiratory and CAP Plan: Continue Sotalol/ titration complete Ongoing inpt status due to CAP/hypercarbic respiratory failure 01/08/18 14:54 Subjective: Feels improved compared to yesterday. Reviewed/Discussed With: hospitalist (Dr. Guardado) Objective: Vital Signs (8 Hrs) Temp Pulse Resp BP Pulse Ox 01/08/18 12:00 97.8 F 62 18 80/38 L 91 L 01/08/18 11:10 120 H 20 93 01/08/18 11:03 91 L 01/08/18 07:56 98.4 F 66 18 129/52 H 88 L Intake/Output (24 Hrs) 01/07/18 01/08/18 01/09/18 05:59 05:59 05:59 Intake Total 600 150 Output Total 900 2100 320 Balance -300 -1950 -320 Intake: Oral (ml) 600 100 IV Infused (ml) 50 cefTRIAXone 1 GM/DEXTROSE 50 50 ml @ 100 mls/hr IV DAILY [facility] Rx#:[id number] Output: Urine (ml) 900 2100 320 Toilet 900 2100 320 Other: Weight 60.9 kg 56.6 kg Intake Quantity Yes Sufficient Number of Voids Toilet 1 1 Number of Stools Toilet 1 1 Result Diagrams: 01/08/18 03:38 01/08/18 03:38 Telemetry: A-paced, V-sensed - Physical Exam Constitutional: no apparent distress Eyes: anicteric sclera Cardiovascular: regular rate and rhythm Respiratory: clear to auscultate bilat, reduced air movement Skin: no rashes, other (wearing compressive stockings) Neurologic: AAOx3 ICD10 Worksheet Patient Problems: Problems Problem Status Onset Acute dyspnea Acute COPD exacerbation Acute Chronic Disease Mgmt/Transitional Care Acute Hypoxia Acute Near syncope Acute
[2018-01-08] MEDS: PRAMIPEXOLE 0.25 MG TAB PO PRN (21:16)
[2018-01-08] MEDS: LATANOPROST 0.005% 2.5 ML OPHT DROPS EACHEYE SCH (21:18)
--- NOTE | 2018-01-08 23:05 | CPEKG ---
Heart Rate: 60 RR Interval: 1000 P-R Interval: 148 QRSD Interval: 98 QT Interval: 428 QTC Interval: 428 P [place]: 71 QRS [place]: 38 T Wave [place]: 57 EKG Severity - ABNORMAL ECG - EKG Impression: ATRIAL-PACED COMPLEXES EKG Impression: PROBABLE LEFT ATRIAL ABNORMALITY Electronically Signed By: Meño Ko 09-Jan-2018 06:04:00
[2018-01-09] MEDS: IPRATROPIUM/ALBUTEROL 3 ML DEYVIAL IH SCH ×4 (05:47→20:36)
[2018-01-09] MEDS: PANTOPRAZOLE SODIUM 40 MG TAB PO SCH (08:23)
[2018-01-09] MEDS: SOTALOL HCL 80 MG TAB PO SCH ×2 (08:24→22:23)
[2018-01-09] MEDS: GABAPENTIN 300 MG CAP PO SCH ×3 (08:25→22:25)
[2018-01-09] MEDS: traMADol 50 MG TAB PO SCH ×3 (08:25→22:22)
[2018-01-09] MEDS: ATORVASTATIN CALCIUM 10 MG TAB PO SCH (08:26)
[2018-01-09] MEDS: LOSARTAN POTASSIUM 25 MG TAB PO SCH (08:26)
[2018-01-09] MEDS: FUROSEMIDE 40 MG TAB PO SCH (08:26)
[2018-01-09] MEDS: SPIRONOLACTONE 25 MG TAB PO SCH ×2 (08:26→17:02)
[2018-01-09] MEDS: ENOXAPARIN 40 MG/0.4 ML SYR SC SCH (08:27)
[2018-01-09] MEDS: DOXYCYCLINE HYCLATE 100 MG CAP/TAB PO SCH ×2 (08:27→22:25)
[2018-01-09] MEDS: BRIMONIDINE 0.15% 5 ML OPHT.BTL EACHEYE SCH ×2 (08:29→22:26)
[2018-01-09] MEDS: FLUTICASONE/SALMETER 500/50MCG DISKUS IH SCH ×2 (08:42→22:30)
--- NOTE | 2018-01-09 10:35 | HOSPPROG ---
Hospitalist Progress Note Assessment/Plan: 77 yo female with h/o advanced COPD, CAD, diastolic HF, and A fib admitted for Sotalol induction. Found to have elevated CO2 levels from baseline as well as pneumonia. Acute on chronic hypercarbic / hypoxemic respiratory failure in setting of advanced COPD and CAP - Chronically elevated CO2. She is not very tolerant of bipap, but will bring in her home unit. Serum CO2 trending down. CXR personally reviewed / interp- RML PNA. -Cont Ceftriaxone / Doxy for CAP (suspect this was present prior to admission ), deferring Azithromycin due to risk of QT prolongation with Sotalol -will change to oral Levaquin starting tomorrow in preparation for d/c ( today is day 3/7 of atbx) -cont QID duonebs, advair -deferring steroids, no wheezing -cont O2, at baseline requirement of 3 LPM A fib - pacemaker present, admitted for sotalol induction, not anticoagulated 2/ 2 falls. EKG atrial paced, incomplete RBBB. Cards managing, considering ablation. -cont asa, sotalol -further management / anticoagulation per cards CAD with prior stent of right coronary - chest pain free -cont asa, BB, statin Diastolic heart failure - more euvolemic today -increased lasix to a bit to 60 mg BID from home dose 80 qam, 20 qpm -follow I&O's, daily weights Hypertension - cont current regimen Peripheral neuropathy - cont gabapentin Limited resuscitation - DNI DVT PPLX - start lovenox Dispo - cont inpt, CM to assist with help at home, PT/OT evals-pt to go home with home care, likely d/c in am, still very weak today Subjective: Pt feels much better today. Breathing improved. Energy improved. She hasn't ambulated much though, quite weak per RN and PT. No fevers. Less cough. No CP. Objective: Vital Signs Temp Pulse Resp BP Pulse Ox 36.5 C 60 18 115/64 91 L 01/09/18 07:37 01/09/18 07:37 01/09/18 07:37 01/09/18 07:37 01/09/18 07:37 Microbiology 01/08/18 21:20 - Final Unspecified 01/08/18 04:00 - Final Sputum, Expectorated Sputum Culture - Final Laboratory Results 01/09/18 03:47 01/09/18 03:47 01/08/18 01/09/18 01/10/18 05:59 05:59 05:59 Intake Total 150 1070 Output Total 2100 1420 Balance -1950 -350 PT 12.9 SEC (12.0-15.0) 01/07/18 05:13 INR 0.95 (0.83-1.16) 01/07/18 05:13 - Physical Exam Constitutional: no apparent distress Eyes: PERRL Ears, Nose, Mouth, Throat: moist mucous membranes Cardiovascular: regular rate and rhythym Respiratory: no respiratory distress, other (faint RLL crackles, rare exp wheeze ) Skin: warm, normal color Musculoskeletal: generalized weakness Neurologic: AAOx3 Psychiatric: interacting appropriately ICD10 Worksheet Patient Problems: Problems Problem Status Onset Acute dyspnea Acute COPD exacerbation Acute Chronic Disease Mgmt/Transitional Care Acute Hypoxia Acute Near syncope Acute
--- NOTE | 2018-01-09 10:38 | ASMTCMCOM ---
CM Note CM Note Notes: Chart reviewed. Discussed with PT. Therapies recommending [facility]. Patient agreeable. She was recently with [facility]. [facility] Awaiting reply. Plan home with [facility]. CM to follow. Date Signed: 01/09/2018 10:37 AM Electronically Signed By:Larisa Rosales RN
[2018-01-09] MEDS: ASPIRIN EC 81 MG TAB PO SCH (11:36)
--- NOTE | 2018-01-09 13:14 | PDCARPN ---
Cardiology Progress Note Chief Complaint: AFl Assessment/Plan: Assessment: 77-year-old female with COPD on supplemental oxygen, chronic hypercarbic respiratory failure, coronary disease with a history of RCA stenting in 2009, CVA, paroxysmal atrial fibrillation, sick sinus syndrome with pacemaker, non flow-limiting carotid disease and pulmonary hypertension. Admitted for Sotalol titration. #. Afl with RVR: converted to SR not on AC due to falls but can be reconsidered in outpatient setting has completed Sotalol titration #. CAD: no symptoms suggestive of angina continue med management #. htn: BP very elevated on arrival but now improved continue current management #COPD: at baseline O2 needs #. hypercarbic respiratory failure: high CO2 from COPD and now dx of CAP appreciate hospitalist input #. CAP: per hospital med/ appreciate Dr. Evans on abx #. DCHF: continue Lasix edema improved #. Inpt status: admitted for high-risk med titration which will require >48 hours and now dx of hypercarbic respiratory failure and CAP Plan: Sotalol titration complete Ongoing inpt status due to CAP/hypercarbic respiratory failure 01/08/18 14:54 01/09/18 13:12 Subjective: Feels weak. Objective: Vital Signs (8 Hrs) Temp Pulse Resp BP Pulse Ox 01/09/18 11:23 98.1 F 60 18 93/43 L 90 L 01/09/18 07:37 97.7 F 60 18 115/64 91 L 01/09/18 05:47 88 23 H 90 L Intake/Output (24 Hrs) 01/08/18 01/09/18 01/10/18 05:59 05:59 05:59 Intake Total 150 1070 Output Total 2100 1420 Balance -1950 -350 Intake: Oral (ml) 100 1070 IV Infused (ml) 50 cefTRIAXone 1 GM/DEXTROSE 50 50 ml @ 100 mls/hr IV DAILY [facility]MI Rx#:[id number] Output: Urine (ml) 2100 1420 Toilet 2100 1420 Other: Weight 56.6 kg 60.8 kg Intake Quantity Yes Sufficient Number of Voids Toilet 1 Number of Stools Toilet 1 1 Result Diagrams: 01/09/18 03:47 01/09/18 03:47 Telemetry: A-paced/V sensed - Physical Exam Constitutional: no apparent distress Cardiovascular: regular rate and rhythm Respiratory: clear to auscultate bilat, no crackles Neurologic: AAOx3 Psychiatric: cooperative, interactive ICD10 Worksheet Patient Problems: Problems Problem Status Onset Acute dyspnea Acute COPD exacerbation Acute Chronic Disease Mgmt/Transitional Care Acute Hypoxia Acute Near syncope Acute
[2018-01-09] MEDS: LATANOPROST 0.005% 2.5 ML OPHT DROPS EACHEYE SCH (22:27)
[2018-01-09] MEDS: ONDANSETRON 4 MG/2 ML VIAL IVP PRN (23:51)
[2018-01-10] MEDS: IPRATROPIUM/ALBUTEROL 3 ML DEYVIAL IH SCH ×4 (05:50→21:18)
[2018-01-10] MEDS ORDERED: FUROSEMIDE 40 MG TAB PO SCH ×2 (09:00)
--- NOTE | 2018-01-10 10:20 | PDCARPN ---
Cardiology Progress Note Chief Complaint: Afl Assessment/Plan: Assessment: 77-year-old female with COPD on supplemental oxygen, chronic hypercarbic respiratory failure, coronary disease with a history of RCA stenting in 2009, CVA, paroxysmal atrial fibrillation, sick sinus syndrome with pacemaker, non flow-limiting carotid disease and pulmonary hypertension. Admitted for Sotalol titration. #. Afl with RVR: converted to SR not on AC due to falls but can be reconsidered in outpatient setting has completed Sotalol titration #. CAD: no symptoms suggestive of angina continue med management #. htn: BP very elevated on arrival but now improved after holding Losartan continue current management #COPD: at baseline O2 needs #. hypercarbic respiratory failure: high CO2 from COPD and now dx of CAP appreciate hospitalist input #. CAP: per hospital med/ appreciate hospitalist assistance on abx #. DCHF: continue Lasix edema improved #. Inpt status: admitted for high-risk med titration which is now complete but continues inpt status d/t hypercarbic respiratory failure and CAP Plan: Sotalol titration complete Ongoing inpt status due to CAP/hypercarbic respiratory failure 01/10/18 10:17 Subjective: Feels fatigued. Objective: Vital Signs (8 Hrs) Temp Pulse Resp BP Pulse Ox 01/10/18 08:23 89 L 01/10/18 08:00 97.6 F 60 22 H 112/48 L 80 L 01/10/18 05:52 64 18 94 01/10/18 04:00 98.4 F 60 17 109/44 L 95 Intake/Output (24 Hrs) 01/09/18 01/10/18 01/11/18 05:59 05:59 05:59 Intake Total 1070 1310 Output Total 1420 550 Balance -350 760 Intake: Oral (ml) 1070 1240 IV Intake (ml) 20 IV Infused (ml) 50 cefTRIAXone 1 GM/DEXTROSE 50 50 ml @ 100 mls/hr IV DAILY [facility]MI Rx#:[id number] Output: Urine (ml) 1420 550 Toilet 1420 550 Other: Weight 60.8 kg 94.7 kg Number of Voids Toilet 1 Number of Stools Toilet 1 Result Diagrams: 01/09/18 03:47 01/09/18 03:47 Telemetry: A-paced, V sensed - Physical Exam Constitutional: no apparent distress, other (somnolent) Cardiovascular: regular rate and rhythm Respiratory: other (getting breathing treatment at time of my visit) Neurologic: AAOx3 ICD10 Worksheet Patient Problems: Problems Problem Status Onset Acute dyspnea Acute COPD exacerbation Acute Chronic Disease Mgmt/Transitional Care Acute Hypoxia Acute Near syncope Acute
[2018-01-10] MEDS: traMADol 50 MG TAB PO SCH ×3 (10:29→20:45)
[2018-01-10] MEDS: DOXYCYCLINE HYCLATE 100 MG CAP/TAB PO SCH ×2 (10:30→20:45)
[2018-01-10] MEDS: CEFDINIR 300 MG CAP PO SCH ×2 (10:30→20:44)
[2018-01-10] MEDS: ATORVASTATIN CALCIUM 10 MG TAB PO SCH (10:31)
[2018-01-10] MEDS: SOTALOL HCL 80 MG TAB PO SCH ×2 (10:31→20:43)
[2018-01-10] MEDS: GABAPENTIN 300 MG CAP PO SCH ×3 (10:32→20:44)
[2018-01-10] MEDS: PANTOPRAZOLE SODIUM 40 MG TAB PO SCH (10:33)
[2018-01-10] MEDS: SPIRONOLACTONE 25 MG TAB PO SCH ×2 (10:33→17:30)
[2018-01-10] MEDS: ENOXAPARIN 40 MG/0.4 ML SYR SC SCH (10:35)
[2018-01-10] MEDS: BRIMONIDINE 0.15% 5 ML OPHT.BTL EACHEYE SCH ×2 (10:37→20:50)
[2018-01-10] MEDS: FLUTICASONE/SALMETER 500/50MCG DISKUS IH SCH ×2 (10:39→21:02)
[2018-01-10] MEDS: ASPIRIN EC 81 MG TAB PO SCH (12:50)
--- NOTE | 2018-01-10 16:51 | ASMTCMCOM ---
CM Note CM Note Notes: Discussed pt in rounds, pt's daughters and also present. Dc plan is tentatively to go home w/[facility], however, daughters expressed concern saying that pt's is not doing so great either and that they may need more help at home. I let them know that CM will talk more with them about private duty care. They were not present later in day when I attempted to discuss so CM can follow up with them tomorrow. Dr Figueroa also brought up the possibility of SNF if needed. PT recommending HC as of yesterday but pt was not able to work with PT today b/c breathing/CO2 issues. CM will follow. Date Signed: 01/10/2018 04:51 PM Electronically Signed By:Orin Bender RN
--- NOTE | 2018-01-10 17:02 | HOSPPROG ---
Hospitalist Progress Note Assessment/Plan: Assessment: 77 yo female admitted for Sotalol induction c/b acute on chronic hypercapnic and hypoxic respiratory failure, acute encephalopathy, possible PNA , acute COPD exacerbation, and acute diastolic CHF exacerbation Plan: # Acute on chronic hypercapnic and hypoxemic respiratory failure. Evidenced by pH 7.28/pCO2 89 today w/ SpO2 79% during attempts to wean down her supp o2 to prevent further retention, 2/2 dCHF and COPD - begin aggressive tx for both dCHF and COPD - counseled patient and family that BiPAP now is critical to survival, and BiPAP o/n should be used to prevent this same scenario from unfolding tomorrow AM - repeat ABG this afternoon and again in AM - cont BiPAP as long as patient tolerates, work w/ home device to optimize adherence # Acute COPD exacerbation. Evidenced by worsening CO2 retention today and exp wheezes w/ poor exp air movement - BiPAP - start methylpred 60 q6, cont schedule duonebs, PRN alb nebs, gauge effect # Acute diastolic CHF exacerbation. Evidenced by bilat LE edema, interstitial infiltrates on CXR (personally interpreted), BNP 1500 - remains hypervolemic on exam today despite lasix, w/ rising serum bicarb level , start acetozolamide 250mg IV bid and gauge effect, monitor lytes # Possible RML pneumonia. POA, given severity of illness, will tx for 5 days Abx , (4/5 beta-lactam+doxy) # Acute encephalopathy. Evidenced by global brain dysfunction characterized as unresponsiveness, poor level of attention, lethargy, all of which are an acute change from baseline, 2/2 metabolic effects of hypercapnea - monitor mental status after initiating BiPAP # Persistent atrial fibrillation. Admitted initially for sotalol load, which was successful and patient is now A-paced - cont on sotalol - d/w Danna Dawn, card provider, agreed that hosp med will take over as primary service now that main issues are outside scope of initial Afib - cont ASA - Cards will consider ablation in future, rec close f/u # CAD. Chronic, with prior stent of right coronary, cont ASA, statin, bblocker # Hypertension. Chronic, cont current Rx # Peripheral neuropathy. Chronic, cont gabapentin PPx. High risk, lovenox 40 Code. DNI Dispo. ADD uncertain, anticipate SNF/rehab vs. increased home care, case mgmt addressing w/ family High-level of medical complexity secondary to issues above, with high risk of worsening morbidity and/or mortality. Subjective: Patient completely somnolent this morning unresponsive Objective: Vital Signs Temp Pulse Resp BP Pulse Ox 36.4 C 60 20 102/53 L 93 01/10/18 12:00 01/10/18 12:00 01/10/18 12:00 01/10/18 12:53 01/10/18 12:00 Microbiology 01/08/18 21:20 - Final Unspecified Sputum Culture - Final Laboratory Results 01/09/18 03:47 01/09/18 03:47 01/09/18 01/10/18 01/11/18 05:59 05:59 05:59 Intake Total 1070 1310 Output Total 1420 550 Balance -350 760 PT 12.9 SEC (12.0-15.0) 01/07/18 05:13 INR 0.95 (0.83-1.16) 01/07/18 05:13 - Physical Exam Constitutional: not in pain, chronically ill appearing, uncomfortable, cachectic Cardiovascular: systolic murmur (1/6 sternal), JVD, edema (Trace bilateral lower extremity), No irregularly irregular, No tachycardia, No bradycardia Respiratory: reduced air movement (On expiration bilaterally), expiratory wheeze , inspiratory crackles (Bilateral bases), respiratory distress (Visible tachypnea and labored breathing) Gastrointestinal: normoactive bowel sounds, soft, non-tender abdomen, no palpable masses Neurologic: AAOx3, No weakness (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
[2018-01-10] MEDS: acetaZOLAMIDE 250 MG in SYRINGE 0 ML IVP SCH (17:32)
[2018-01-10] MEDS: methylPREDNISolone SOD SUCC 125 MG/2 ML VIAL IVP SCH (20:46)
[2018-01-10] MEDS: LATANOPROST 0.005% 2.5 ML OPHT DROPS EACHEYE SCH (21:00)
[2018-01-11] MEDS: methylPREDNISolone SOD SUCC 125 MG/2 ML VIAL IVP SCH ×5 (00:31→18:37)
[2018-01-11] MEDS: PRAMIPEXOLE 0.25 MG TAB PO PRN (00:37)
[2018-01-11] MEDS: IPRATROPIUM/ALBUTEROL 3 ML DEYVIAL IH SCH ×4 (05:42→20:07)
[2018-01-11] MEDS: FLUTICASONE/SALMETER 500/50MCG DISKUS IH SCH ×2 (07:39→20:09)
[2018-01-11] MEDS: traMADol 50 MG TAB PO SCH ×3 (09:01→21:43)
[2018-01-11] MEDS: ATORVASTATIN CALCIUM 10 MG TAB PO SCH (09:01)
[2018-01-11] MEDS: CEFDINIR 300 MG CAP PO SCH ×2 (09:01→21:43)
[2018-01-11] MEDS: PANTOPRAZOLE SODIUM 40 MG TAB PO SCH (09:01)
[2018-01-11] MEDS: GABAPENTIN 300 MG CAP PO SCH ×3 (09:01→21:43)
[2018-01-11] MEDS: DOXYCYCLINE HYCLATE 100 MG CAP/TAB PO SCH ×2 (09:01→10:49)
[2018-01-11] MEDS: ENOXAPARIN 40 MG/0.4 ML SYR SC SCH ×3 (09:02→12:28)
[2018-01-11] MEDS: SOTALOL HCL 80 MG TAB PO SCH ×2 (09:14→21:42)
[2018-01-11] MEDS: acetaZOLAMIDE 250 MG in SYRINGE 0 ML IVP SCH ×2 (09:15→16:45)
[2018-01-11] MEDS: BRIMONIDINE 0.15% 5 ML OPHT.BTL EACHEYE SCH ×2 (09:16→23:10)
[2018-01-11] MEDS: ONDANSETRON 4 MG/2 ML VIAL IVP PRN ×3 (09:26→18:37)
[2018-01-11] MEDS: SPIRONOLACTONE 25 MG TAB PO SCH (11:02)
[2018-01-11] MEDS ORDERED: ACETAMINOPHEN 325 MG TAB PO PRN (11:04)
[2018-01-11] MEDS: ASPIRIN EC 81 MG TAB PO SCH (12:22)
--- NOTE | 2018-01-11 13:38 | GCON ---
[f rep st] CONSULTATION CHEST CONSULTATION REASON FOR CONSULTATION: Severe hypercarbic respiratory failure, chronic obstructive pulmonary disea se. HISTORY OF PRESENT ILLNESS: The patient is a very pleasant 77-year-old white female with a past medi natalie history including chronic pain, diastolic heart failure, osteoarthritis, atrial fibrillation, cor onary artery disease with status post stenting. She also has a history of severe emphysema for which she is on home BiPAP. She was admitted on January 06, initially to the Cardiology service. A blood g as was subsequently performed and she was found to be markedly hypercarbic. She was begun on BiPAP b ut has not improved her ventilation. She has home BiPAP but does not use it. In discussion with the patient, she states that she is markedly breathless more with any form of exertion, though she is br eathless at rest. She denies any chest pain, pleuritic-type chest pain or angina equivalent. There is no fever or night sweats. REVIEW OF SYSTEMS: A 10-point review of systems is performed and is negative except for what was not ed in HPI. PAST MEDICAL HISTORY: Significant for chronic pain, diastolic heart failure, osteoarthritis, periphe ral neuropathy, atrial fibrillation, coronary artery disease, and emphysema. PAST SURGICAL HISTORY: She has had an appendectomy, tonsillectomy, pacemaker and coronary stenting. ALLERGIES: No known to medications. FAMILY HISTORY: Noncontributory. SOCIAL HISTORY: Previous heavy tobacco use. Now she only smokes occasionally. She denies any signi ficant alcohol use. She is , has excellent family support. PHYSICAL EXAM: VITAL SIGNS: Blood pressure is 116/45, pulse 80, respirations 20, temperature 36.9, oxygen saturation 91% on 2.5 L. GENERAL: She is a thin, somewhat frail, elderly white female who hernandez s in moderate respiratory distress. HEENT: Eyes are PERRLA, EOMI. Throat shows no erythema or tons illar hypertrophy. NECK: Supple. There is no cervical adenopathy. HEART: Regular rate and rhythm without murmurs, rubs, or gallops. LUNGS: Diminished breath sounds and very poor air movement. AB DOMEN: Soft, nontender. Bowel sounds are present. EXTREMITIES: No clubbing, cyanosis, or edema. LABORATORIES: Hemoglobin is 11, hematocrit is 39, sodium 139, potassium 5.1, chloride 92, CO2 is 43, BUN is 33, creatinine 1.1, glucose is 118. Our most recent arterial blood gas, pH is 7.26, pCO2 of 89, PO2 of 75, bicarb of 39, oxygen saturation 93%. This is on 30% and BiPAP of 17/6. IMPRESSION: 1. Severe emphysema. 2. Severe hypercarbic respiratory failure, despite aggressive BiPAP. 3. Right middle lobe pneumonia. 4. Atrial fibrillation. 5. Coronary artery disease. 6. Hypertension. 7. Peripheral neuropathy. 8. Patient is currently a do not intubate and no chest compressions. RECOMMENDATIONS: 1. We will increase her steroids Solu-Medrol from 60 mg to 125 mg q.6 hours. 2. We will adjust her BiPAP to 20/4, thus give her pressure support of 16. 3. We will repeat an ABG in approximately 2 hours. 4. We will check a chest x-ray. 5. We will have a discussion with the patient's family regarding end-of-life issues. /[id number]/MODL
--- NOTE | 2018-01-11 15:27 | ASMTCMCOM ---
CM Note CM Note Notes: Spoke to patient and family. They are interested in going to [facility] on discharge. This CM sent a referral. Date Signed: 01/11/2018 03:26 PM Electronically Signed By:Bel Sethi LCSW
--- NOTE | 2018-01-11 17:14 | HOSPPROG ---
Hospitalist Progress Note Assessment/Plan: Assessment: 77 yo female admitted for Sotalol induction c/b acute on chronic hypercapnic and hypoxic respiratory failure, acute encephalopathy, possible PNA , acute COPD exacerbation, and acute diastolic CHF exacerbation Plan: # Acute on chronic hypercapnic and hypoxemic respiratory failure. Evidenced by pH 7.26/pCO2 89 today, 2/2 dCHF and COPD - d/w Dr. Tang, consultation appreciated, he recommends adjusting pressures on BiPAP to reduce retention and repeat ABG demonstrating improvement in pCO2 81 , pH 7.29 - patient will continue BiPAP mask # Acute COPD exacerbation. Evidenced by worsening CO2 retention today, stable exp wheezes w/ poor exp air movement - BiPAP - increased methylpred 60 q6, cont schedule duonebs, PRN alb nebs, gauge effect # Acute diastolic CHF exacerbation. Evidenced by bilat LE edema, interstitial infiltrates on CXR, BNP 1500 - cont acetozolamide 250 bid, monitor lytes, gauge effect # Possible RML pneumonia. POA, given severity of illness, will tx for 5 days Abx , (5/5 beta-lactam+doxy), stop abx after today # Acute encephalopathy. Evidenced by global brain dysfunction characterized as unresponsiveness, poor level of attention, lethargy, all of which are an acute change from baseline, 2/2 metabolic effects of hypercapnea - recurrent this AM, monitor mental status after initiating BiPAP # Persistent atrial fibrillation. Admitted initially for sotalol load, which was successful and patient is now A-paced - cont on sotalol - cont ASA - Cards will consider ablation in future, rec close f/u # CAD. Chronic, with prior stent of right coronary, cont ASA, statin, bblocker # Hypertension. Chronic, cont current Rx # Peripheral neuropathy. Chronic, cont gabapentin PPx. High risk, lovenox 40 Code. DNR/DNI Dispo. ADD uncertain, anticipate SNF/rehab vs. increased home care, case mgmt addressing w/ family High-level of medical complexity secondary to issues above, with high risk of worsening morbidity and/or mortality. Subjective: patient reports improved energy and mentation this AM, then worsened Objective: Vital Signs Temp Pulse Resp BP Pulse Ox 36.9 C 71 20 106/49 L 89 L 01/11/18 15:25 01/11/18 15:25 01/11/18 15:25 01/11/18 15:25 01/11/18 15:25 Microbiology 01/08/18 21:20 - Final Unspecified Sputum Culture - Final Laboratory Results 01/11/18 05:20 01/11/18 05:20 01/10/18 01/11/18 01/12/18 05:59 05:59 05:59 Intake Total 1310 600 480 Output Total 550 1400 550 Balance 760 -800 -70 PT 12.9 SEC (12.0-15.0) 01/07/18 05:13 INR 0.95 (0.83-1.16) 01/07/18 05:13 - Physical Exam Constitutional: no apparent distress, not in pain, chronically ill appearing, uncomfortable, cachectic Cardiovascular: systolic murmur (III/ at apex), No irregularly irregular, No tachycardia, No edema Respiratory: reduced air movement (on exp bilat), No expiratory wheeze, No inspiratory crackles, No bronchial breath sounds Gastrointestinal: normoactive bowel sounds, soft, non-tender abdomen, no palpable masses Musculoskeletal: other (kyphotic) Neurologic: AAOx3, sensation intact bilaterally, No weakness Psychiatric: not anxious, encephalopathic (somnolent but arousable to voice), flat affect, No agitated ICD10 Worksheet Patient Problems: Problems Problem Status Onset COPD exacerbation Acute Hypoxia Acute Chronic Disease Mgmt/Transitional Care Acute Near syncope Acute Acute dyspnea Acute
[2018-01-11] MEDS: LATANOPROST 0.005% 2.5 ML OPHT DROPS EACHEYE SCH (23:09)
[2018-01-12] MEDS: methylPREDNISolone SOD SUCC 125 MG/2 ML VIAL IVP SCH ×3 (00:07→11:36)
[2018-01-12 03:58] LABS: PLATELET COUNT 115 10^3/uL (150-400)
[2018-01-12] MEDS: IPRATROPIUM/ALBUTEROL 3 ML DEYVIAL IH SCH ×4 (04:15→20:17)
[2018-01-12] MEDS: FLUTICASONE/SALMETER 500/50MCG DISKUS IH SCH ×2 (07:55→20:17)
[2018-01-12] MEDS: traMADol 50 MG TAB PO SCH ×3 (08:17→21:03)
[2018-01-12] MEDS: CEFDINIR 300 MG CAP PO SCH (08:17)
[2018-01-12] MEDS: GABAPENTIN 300 MG CAP PO SCH ×3 (08:17→21:02)
[2018-01-12] MEDS: PANTOPRAZOLE SODIUM 40 MG TAB PO SCH (08:18)
[2018-01-12] MEDS: ATORVASTATIN CALCIUM 10 MG TAB PO SCH (08:18)
[2018-01-12] MEDS: SOTALOL HCL 80 MG TAB PO SCH ×2 (08:18→21:02)
[2018-01-12] MEDS: ENOXAPARIN 40 MG/0.4 ML SYR SC SCH (08:25)
[2018-01-12] MEDS: BRIMONIDINE 0.15% 5 ML OPHT.BTL EACHEYE SCH ×2 (08:27→21:04)
[2018-01-12] MEDS: acetaZOLAMIDE 250 MG in SYRINGE 0 ML IVP SCH ×3 (11:15→16:12)
[2018-01-12] MEDS: ASPIRIN EC 81 MG TAB PO SCH (11:34)
--- NOTE | 2018-01-12 12:55 | ASMTCMCOM ---
CM Note CM Note Notes: 01/12/2018 Case Management Note Met pt during rounds today. Faxed updates to [facility]. Anticipating d/c on Fri or . Case Management d/c poc: to [facility] when medically stable. Case Management to follow. Date Signed: 01/12/2018 12:55 PM Electronically Signed By:Leslie Forrest RN
--- NOTE | 2018-01-12 16:45 | PDINTPN ---
Professional Nurse Progress Note Assessment/Plan: Assessment/plan: 77 F with AF, CAD, COPD, LUIS ALBERTO and poor CPAP compliance admitted 01/06/18 for sotalol load, but found to have hypercapnic respiratory failure and required bipap, high dose steroids and abx. Also given acetazolamide for ongoing diuresis. * Acute respiratory failure with hypoxia and hypercapnia. Cause is uncertain, but she appears stable with her current regimen including Advair 500, duoneb QID , solumedrol 125/6 hours, prn xopenex, and bipap. No macrolide abx. In an effort to minimize complications, will reduce steroids to 60/day and observe. No wheezing today, which can be complex in this type of patient. * CHF- last echo i could find showed EF 53% and diastolic dysfunction. I would do NOT favor the use of acetazolamide in patients with chronic CO2 retention since causing a bicaronaturia will deplete necessary stores to maintain pH. She is quite stable at this point and i will dc diamox now. * Afib- converted and stable- defer to cardiology * LUIS ALBERTO- her AHI was 75 on a recent sleep study but she has not yet started CPAP at home. She should continue to use it QHS, but attempt to avoid NIV during the day for now. * PNA- she remains afebrile, cultures are negative and her WBC is low. No current abx, but would favor macrolides if needed. * Subjective: feels better and using bipap most of the day. Walked in halls some today without it. Objective: Vital Signs Temp Pulse Resp BP Pulse Ox 37.1 C 80 17 115/51 L 82 L 01/12/18 15:23 01/12/18 15:23 01/12/18 15:23 01/12/18 15:23 01/12/18 15:23 Laboratory Results 01/12/18 03:46 01/12/18 03:46 01/11/18 01/12/18 01/13/18 05:59 05:59 05:59 Intake Total 600 1000 Output Total 1400 2049 Balance -800 -1050 PT 12.9 SEC (12.0-15.0) 01/07/18 05:13 INR 0.95 (0.83-1.16) 01/07/18 05:13 Physical Exam - Physical Exam General Appearance: alert, no apparent distress, other (on bipap) EENT: PERRL/EOMI Neck: supple Respiratory: lungs clear, normal breath sounds, No respiratory distress, No accessory muscle use Cardiac/Chest: regular rate, rhythm, No edema Abdomen: non-tender, soft, No distended Skin: normal color, warm/dry, No cyanosis Lymphatic: no adenopathy Extremities: No pedal edema Neuro/Psych: alert, normal mood/affect, oriented x 3 ICD10 Worksheet Patient Problems: Problems Problem Status Onset Acute dyspnea Acute COPD exacerbation Acute Chronic Disease Mgmt/Transitional Care Acute Hypoxia Acute Near syncope Acute
--- NOTE | 2018-01-12 18:16 | HOSPPROG ---
Hospitalist Progress Note Assessment/Plan: Assessment: 77 yo female admitted for Sotalol induction c/b acute on chronic hypercapnic and hypoxic respiratory failure, acute encephalopathy, possible PNA , acute COPD exacerbation, and acute diastolic CHF exacerbation Plan: # Acute on chronic hypercapnic and hypoxemic respiratory failure.Improving today s/p BiPAP adjustments (pH 7.31/pCO2 73) - appreciate ongoing Pulm consult - patient will continue BiPAP mask when sleeping - current settings 25/4, back-up rate 20, MV 2 originally when sleeping, now MV 8 while sleeping w/ TW 300-400, will forward to Dr. Schreiber to get script for adjustment of home device settings (which will be needed when patient goes to SNF) # Acute COPD exacerbation. Adjusted steroids to 60mg daily, cont xopenex # Acute diastolic CHF exacerbation. Evidenced by bilat LE edema, interstitial infiltrates on CXR, BNP 1500 - adjusted to home dose of lasix 40mg bid starting tomorrow AM, gauge effect # Possible RML pneumonia. POA, given severity of illness, s/p 5 day Abx # Acute encephalopathy. Evidenced by global brain dysfunction characterized as unresponsiveness, poor level of attention, lethargy, all of which are an acute change from baseline, 2/2 metabolic effects of hypercapnea - stabilized # Persistent atrial fibrillation. Admitted initially for sotalol load, which was successful and patient is now A-paced - cont on sotalol - cont ASA - Cards will consider ablation in future, rec close f/u, d/w Myranda Duarte, cards provider today # CAD. Chronic, with prior stent of right coronary, cont ASA, statin, bblocker # Hypertension. Chronic, cont current Rx # Peripheral neuropathy. Chronic, cont gabapentin PPx. High risk, lovenox 40 Code. DNR/DNI Dispo. ADD uncertain, anticipate SNF/rehab, case mgmt addressing w/ family High-level of medical complexity secondary to issues above, with high risk of worsening morbidity and/or mortality. Subjective: patient reports more energy today s/p setting adjustment yesterday Objective: Vital Signs Temp Pulse Resp BP Pulse Ox 37.1 C 80 17 115/51 L 82 L 01/12/18 15:23 01/12/18 15:23 01/12/18 15:23 01/12/18 15:23 01/12/18 15:23 Laboratory Results 01/12/18 03:46 01/12/18 03:46 01/11/18 01/12/18 01/13/18 05:59 05:59 05:59 Intake Total 600 1000 Output Total 1400 2049 600 Balance -800 -1050 -600 PT 12.9 SEC (12.0-15.0) 01/07/18 05:13 INR 0.95 (0.83-1.16) 01/07/18 05:13 - Physical Exam Constitutional: no apparent distress, not in pain, chronically ill appearing, No uncomfortable Cardiovascular: systolic murmur (II/ at apex), tachycardia, edema (trace bilat LE), No irregularly irregular Respiratory: reduced air movement (on insp and exp), No expiratory wheeze, No inspiratory crackles, No bronchial breath sounds Gastrointestinal: normoactive bowel sounds, soft, non-tender abdomen, no palpable masses, No distension Neurologic: AAOx3, No facial droop Psychiatric: interacting appropriately, not anxious, not encephalopathic, thought process linear ICD10 Worksheet Patient Problems: Problems Problem Status Onset COPD exacerbation Acute Hypoxia Acute Chronic Disease Mgmt/Transitional Care Acute Near syncope Acute Acute dyspnea Acute
[2018-01-12] MEDS: LATANOPROST 0.005% 2.5 ML OPHT DROPS EACHEYE SCH (21:04)
[2018-01-12] MEDS: DOCUSATE SODIUM 100 MG CAP PO PRN (21:15)
[2018-01-13] MEDS: IPRATROPIUM/ALBUTEROL 3 ML DEYVIAL IH SCH ×4 (04:59→21:10)
[2018-01-13] MEDS: ATORVASTATIN CALCIUM 10 MG TAB PO SCH (08:15)
[2018-01-13] MEDS: GABAPENTIN 300 MG CAP PO SCH ×3 (08:15→22:06)
[2018-01-13] MEDS: traMADol 50 MG TAB PO SCH ×3 (08:15→22:08)
[2018-01-13] MEDS: methylPREDNISolone SOD SUCC 125 MG/2 ML VIAL IVP SCH (08:16)
[2018-01-13] MEDS: FUROSEMIDE 40 MG TAB PO SCH ×2 (08:16→14:18)
[2018-01-13] MEDS: PANTOPRAZOLE SODIUM 40 MG TAB PO SCH (08:16)
[2018-01-13] MEDS: ENOXAPARIN 40 MG/0.4 ML SYR SC SCH (08:16)
[2018-01-13] MEDS: SOTALOL HCL 80 MG TAB PO SCH ×2 (08:16→22:08)
[2018-01-13] MEDS: BRIMONIDINE 0.15% 5 ML OPHT.BTL EACHEYE SCH ×2 (08:17→22:09)
[2018-01-13] MEDS: DOCUSATE SODIUM 100 MG CAP PO PRN (08:17)
[2018-01-13] MEDS: FLUTICASONE/SALMETER 500/50MCG DISKUS IH SCH ×2 (10:01→21:10)
[2018-01-13] MEDS: ASPIRIN EC 81 MG TAB PO SCH (11:52)
[2018-01-13] MEDS: FAMOTIDINE 20 MG TAB PO SCH ×2 (11:52→22:07)
[2018-01-13] MEDS: CALCIUM CARBONATE 500 MG CHEWABLE TAB PO PRN (11:52)
--- NOTE | 2018-01-13 12:53 | PDINTPN ---
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 Also given acetazolamide for ongoing diuresis. * Acute respiratory failure with hypoxia and hypercapnia, 2/2 COPD plus LUIS ALBERTO. Stable with her current regimen including Advair 500, duoneb QID, solumedrol now 60/day, prn xopenex, and bipap. No macrolide abx. * CHF- last echo I could find showed EF 53% and diastolic dysfunction. I would do NOT favor the use of acetazolamide in patients with chronic CO2 retention since causing a bicaronaturia will deplete necessary stores to maintain pH. Stable off diamox but last dose yest afternoon. * Afib- converted and stable- defer to cardiology * LUIS ALBERTO- her AHI was 75 on a recent sleep study but she has not yet started CPAP at home. She should continue to use it QHS, but attempt to avoid NIV during the day for now. Rx written and left in room for current bipap settings to use at SNF at [facility]. * PNA- she remains afebrile, cultures are negative and her WBC is low. No current abx, but would favor macrolides if needed. * 01/13/18 12:50 Subjective: stable overnight, less sob. Tolerates bipap well. Objective: Vital Signs Temp Pulse Resp BP Pulse Ox 37.3 C 63 18 119/44 L 90 L 01/13/18 12:35 01/13/18 12:35 01/13/18 12:35 01/13/18 12:35 01/13/18 12:35 Laboratory Results 01/12/18 03:46 01/13/18 03:44 01/12/18 01/13/18 01/14/18 05:59 05:59 05:59 Intake Total 1000 1570 450 Output Total 2050 1600 700 Balance -1050 -30 -250 PT 12.9 SEC (12.0-15.0) 01/07/18 05:13 INR 0.95 (0.83-1.16) 01/07/18 05:13 Physical Exam - Physical Exam General Appearance: WD/WN, alert, no apparent distress EENT: PERRL/EOMI Neck: supple Respiratory: lungs clear (mostly- slight wheeze at left), No respiratory distress, No accessory muscle use, No crackles Cardiac/Chest: regular rate, rhythm, No edema Abdomen: non-tender, soft, No distended Skin: normal color, warm/dry, No cyanosis Lymphatic: no adenopathy Extremities: No pedal edema Neuro/Psych: alert, normal mood/affect, oriented x 3 ICD10 Worksheet Patient Problems: Problems Problem Status Onset Acute dyspnea Acute COPD exacerbation Acute Chronic Disease Mgmt/Transitional Care Acute Hypoxia Acute Near syncope Acute
[2018-01-13] MEDS ORDERED: MAGNESIUM CITRATE 300 ML BOTTLE PO ONE (13:49)
[2018-01-13] MEDS ORDERED: LACTULOSE 20 GM/30 ML UDCUP PO PRN (14:43)
[2018-01-13] MEDS ORDERED: MAGNESIUM HYDROXIDE 30 ML UDCUP PO PRN (14:43)
[2018-01-13] MEDS ORDERED: POLYETHYLENE GLYCOL 3350 17 GM PKT PO PRN (14:43)
[2018-01-13] MEDS ORDERED: BISACODYL 10 MG SUPP PR PRN (14:43)
--- NOTE | 2018-01-13 14:43 | HOSPPROG ---
Hospitalist Progress Note Assessment/Plan: Assessment: 77 yo female admitted for Sotalol induction c/b acute on chronic hypercapnic and hypoxic respiratory failure, acute encephalopathy, possible PNA , acute COPD exacerbation, and acute diastolic CHF exacerbation Plan: # Acute on chronic hypercapnic and hypoxemic respiratory failure. Improving today s/p BiPAP adjustments - appreciate ongoing Pulm consult - patient will continue BiPAP mask when sleeping - current settings 25/4, back-up rate 20, MV 2 originally when sleeping, now MV 8 while sleeping w/ TW 300-400, discussed getting script for adjustment of home device settings (which will be needed when patient goes to SNF) with Drs. Schreiber/ Pedro Luis, will need prior to DC - repeat ABG in AM to demonstrate stability - cont to keep supp o2 low to maintain SpO2 80-90% # Acute COPD exacerbation. Adjusted steroids to 60mg daily, cont xopenex, further titration of steroids per Dr. Cloud today # Acute diastolic CHF exacerbation. Evidenced by bilat LE edema, interstitial infiltrates on CXR, BNP 1500 - adjusted to home dose of lasix 40mg bid starting today, gauge effect over next 24hrs to ensure effectiveness # Possible RML pneumonia. POA, given severity of illness, s/p 5 day Abx # Acute encephalopathy. Evidenced by global brain dysfunction characterized as unresponsiveness, poor level of attention, lethargy, all of which are an acute change from baseline, 2/2 metabolic effects of hypercapnea - stabilized # Persistent atrial fibrillation. Admitted initially for sotalol load, which was successful and patient is now A-paced - cont on sotalol - cont ASA - Cards will consider ablation in future, rec close f/u, d/w Myranda Duarte, cards provider today # CAD. Chronic, with prior stent of right coronary, cont ASA, statin, bblocker # Hypertension. Chronic, cont current Rx # Peripheral neuropathy. Chronic, cont gabapentin PPx. High risk, lovenox 40 Code. DNR/DNI Dispo. ADD uncertain, anticipate SNF/rehab 01/14, case mgmt addressing w/ family Subjective: patient w/ improving mobility, able to work w/ therapies today, tolerated 9hrs of bipap last night Objective: Vital Signs Temp Pulse Resp BP Pulse Ox 37.3 C 63 18 119/44 L 90 L 01/13/18 12:35 01/13/18 12:35 01/13/18 12:35 01/13/18 12:35 01/13/18 12:35 Laboratory Results 01/12/18 03:46 01/13/18 03:44 01/12/18 01/13/18 01/14/18 05:59 05:59 05:59 Intake Total 1000 1570 450 Output Total 0 1600 700 Balance -1050 -30 -250 PT 12.9 SEC (12.0-15.0) 01/07/18 05:13 INR 0.95 (0.83-1.16) 01/07/18 05:13 - Pending Discharge Pending Discharge Within 24 Hours: Yes Pending Discharge Date: 01/14/18 Pending Discharge Time: 11:00 - Physical Exam Constitutional: no apparent distress, not in pain, chronically ill appearing, cachectic, No uncomfortable Cardiovascular: systolic murmur (III/ at apex), edema (trace bilat LE), No irregularly irregular, No tachycardia Respiratory: reduced air movement (on exp bilat), No expiratory wheeze, No inspiratory crackles, No bronchial breath sounds, No respiratory distress Gastrointestinal: normoactive bowel sounds, soft, non-tender abdomen, no palpable masses, distension (mildly) Neurologic: AAOx3, sensation intact bilaterally, No weakness Psychiatric: interacting appropriately, not anxious, not encephalopathic, thought process linear ICD10 Worksheet Patient Problems: Problems Problem Status Onset COPD exacerbation Acute Hypoxia Acute Chronic Disease Mgmt/Transitional Care Acute Near syncope Acute Acute dyspnea Acute
[2018-01-13] MEDS: DOCUSATE SODIUM 100 MG CAP PO SCH (22:07)
[2018-01-13] MEDS: LATANOPROST 0.005% 2.5 ML OPHT DROPS EACHEYE SCH (22:10)
[2018-01-14] MEDS: IPRATROPIUM/ALBUTEROL 3 ML DEYVIAL IH SCH ×2 (05:46→11:32)
[2018-01-14] MEDS: FLUTICASONE/SALMETER 500/50MCG DISKUS IH SCH (09:30)
[2018-01-14] MEDS: traMADol 50 MG TAB PO SCH (09:51)
[2018-01-14] MEDS: GABAPENTIN 300 MG CAP PO SCH (09:51)
[2018-01-14] MEDS: FAMOTIDINE 20 MG TAB PO SCH (09:52)
[2018-01-14] MEDS: SOTALOL HCL 80 MG TAB PO SCH (09:52)
[2018-01-14] MEDS: PANTOPRAZOLE SODIUM 40 MG TAB PO SCH (09:52)
[2018-01-14] MEDS: methylPREDNISolone SOD SUCC 125 MG/2 ML VIAL IVP SCH (09:52)
[2018-01-14] MEDS: ATORVASTATIN CALCIUM 10 MG TAB PO SCH (09:52)
[2018-01-14] MEDS: ENOXAPARIN 40 MG/0.4 ML SYR SC SCH (09:52)
[2018-01-14] MEDS: CALCIUM CARBONATE 500 MG CHEWABLE TAB PO PRN (09:53)
[2018-01-14] MEDS: BRIMONIDINE 0.15% 5 ML OPHT.BTL EACHEYE SCH (09:53)
[2018-01-14] MEDS: FUROSEMIDE 40 MG TAB PO SCH (09:53)
[2018-01-14] MEDS: DOCUSATE SODIUM 100 MG CAP PO SCH (10:06)
--- NOTE | 2018-01-14 10:53 | PDDCSUM ---
Discharge Summary Discharge Summary: DISCHARGE SUMMARY FOLLOW-UP ITEMS: Follow-up with Dr. Min Schreiber to reassess BiPAP settings on 02/05/[address] Flores on 02/05/18 DATE OF ADMISSION: 01/06/2018 DATE OF DISCHARGE: 01/14/2018 DISCHARGE DIAGNOSES: 1. Acute on chronic hypercapnic and hypoxemic respiratory failure 2. Acute COPD exacerbation 3. Acute diastolic congestive heart failure exacerbation 4. Possible right middle lobe pneumonia present on admission 5. Acute metabolic encephalopathy 6. Persistent atrial fibrillation 7. Chronic coronary artery disease 8. Chronic peripheral neuropathy CONSULTATIONS: Pulmonary, cardiology PROCEDURES / IMAGING: Frequent use of BiPAP CHIEF COMPLAINT: Presented for elective sotalol load by Cardiology, progressed to acute encephalopathy and respiratory distress SUBJECTIVE: Patient is feeling well at time discharge, she had a good night on BiPAP, is feeling well right now PHYSICAL EXAM ON DISCHARGE: Systolic blood pressure is 120-150, heart rate 70, satting well on 0.5 L nasal cannula, there is some reduced expiratory air movement in the bases, but no expiratory wheezes or bronchial breath sounds, no inspiratory crackles, she has no lower extremity edema, heart rhythm is regular, with a 1/6 systolic murmur at the sternum and apex, bowel sounds are present, abdomen is soft, nondistended , alert awake oriented x3, scattered ecchymoses, chronically ill-appearing, kyphotic LABS ON DISCHARGE: Potassium 3.6, creatinine 1, serum bicarbonate 35 HOSPITAL COURSE BY PROBLEM: 1. Acute on chronic hypercapnic and hypoxic respiratory failure. Secondary to acute COPD exacerbation with acute CHF possibly contributing, resulting in substantial carbon dioxide retention as well as hypoxia, requiring mechanical ventilation with BiPAP during the day as well as increasing the intervals at night, with resultant improvement in her arterial blood gas values as well as mental status. The patient has a very tenuous respiratory status and she is a chronic CO2 retainer. Her SpO2 should remain below 90% during the day, and it is safe for her to remain in a range between 80 and 90%, on low-flow supplemental oxygen, currently at 0.5 liters/minute. Up titrating her supplemental oxygen and maintaining an SpO2 greater than 90% leads to CO2 retention and somnolence. We recommend that the patient continue to utilize BiPAP therapy at night for the duration of her sleep, to avoid increasing her CO2 retention while she is sleeping. We adjusted her BiPAP settings during this hospitalization and she is currently safe on a setting of 25/4, with a backup rate of 20, accomplishing a minute ventilation of 8 while sleeping and pulling tidal volumes between 300-400 mL. A new script for these BiPAP settings has been provided by Dr. Alex Cloud in the patient's home BiPAP device should be reset according to the settings. She should also be continued on the settings while she is at SNF Rehab. 2. Acute COPD exacerbation. Evidenced by reduced expiratory air movement and expiratory wheezes, the patient received high-dose IV steroids and these have been weaned during this hospitalization. She has also been treated with Xopenex nebulizer, her home Advair and duo nebulizers. She will have a prednisone taper beginning with 40mg daily, weaned every 3 days. 3. Possible right middle lobe pneumonia. Present on admission, present on chest imaging, treated with 5 days of antibiotics given her severity of underlying illness. She is not demonstrating any infectious symptoms at time of discharge. 4. Acute diastolic congestive heart failure exacerbation. Evidenced by bilateral lower extremity edema, interstitial infiltrates on chest imaging, and a BNP of around 1500. Given the patient's significant compensatory metabolic alkalosis, she did receive several days of IV acetazolamide with excellent diuretic effect, but has been transitioned back to her oral Lasix and oral Aldactone prior to discharge, and has continued to maintain a net even balance. The patient will be discharged on her home dosages of Lasix Aldactone and potassium, and should have repeat creatinine BUN and lytes drawn on Friday next week with results to both Dr. Schreiber, Dr. Flores, as well as her primary provider. 5. Acute encephalopathy. Evidenced by global brain dysfunction characterized as unresponsiveness, poor level of attention, lethargy, all of which are her acute manifestations of hypercarbia and the metabolic effects thereof. These substantially improved after the patient was placed on an extended period of BiPAP therapy and allowed to clear her hypercapnia. 6. Persistent atrial fibrillation and atrial flutter. The patient was originally admitted for a sotalol load for her persistent atrial fibrillation. The sotalol load was affective, and was under the direction of the cardiology service. The patient is now a paced. She has been continued on aspirin for CVA prevention given her history of falls contraindicating systemic anticoagulation. Cardiology has recommended close follow up with Dr. Flores, will consider ablation in the future. She did go back into a rate controlled flutter prior to discharge, and Cardiology was comfortable with her remaining on the sotalol at the current dosing, since it was accomplishing rate management. Prior to discharge, she did convert back into a normal sinus rhythm. 7. Chronic coronary artery disease. She has a prior stent to the RCA, she was continued on aspirin, statin, her beta-silas was discontinued given that she is loaded on sotalol now. 8. Chronic hypertension. We discontinued the patient's losartan given that her systolic blood pressure has remained within acceptable range of 110-140 on the present dosing of Lasix and Aldactone. DISCHARGE MEDICATIONS: Please see official discharge medication reconciliation sheet in chart , continue home medications with the addition of sotalol 120 twice daily, has needed famotidine, as needed Tums, as needed MiraLax, discontinuation of losartan. DISCHARGE INSTRUCTIONS: Please follow up with Dr. Schreiber and Dr. Flores on 02/05/18 TIME SPENT: Greater than 30 minutes were spent on direct patient care, as well as discharge planning and preparation.
[2018-01-14 11:23] VITALS: BP 134/59; RESP 18; TEMP 98.5
[2018-01-14] MEDS ORDERED: POTASSIUM CL 20 MEQ TAB PO ONE (11:37)
[2018-01-14 11:42] VITALS: PULSE 70
--- NOTE | 2018-01-14 12:02 | PDIAF ---
- Diagnosis Diagnosis: Acute on chronic hypercapnic & hypoxic resp failure, COPD, dCHF, Afib /flut Code Status: Do Not Resuscitate - Medication Management Discharge Medications: Medications to Continue on Transfer Albuterol [Proventil Inhaler HFA (*)] 1 - 2 puffs IH DAILY PRN 04/09/17 [Last Taken Unknown] Aspirin EC [Aspirin EC 81 mg (*)] 81 mg PO DAILY@12 04/09/17 [Last Taken ] Brimonidine 0.15% [Alphagan P 0.15%] 1 drops EACHEYE BID 04/09/17 [Last Taken ] Docusate Sodium [Colace 100 MG (*)] 200 mg PO BID PRN 04/09/17 [Last Taken 04/08 21:00] Fluticasone/Salmeter 500/50Mcg [Advair 500/50 (*)] 1 puffs IH DAILY 04/09/17 [ Last Taken 04/08/17] Furosemide [Lasix 40 MG (*)] 40 mg PO BID@,04/09/17 [Last Taken 01/06/18] Latanoprost 0.005% [Xalatan 0.005% (*)] 1 drops EACHEYE HS 04/09/17 [Last Taken 04/08/17] Levalbuterol 1.25 mg [Xopenex 1.25MG Neb (*)] 1.25 mg IH QID PRN 04/09/17 [Last Taken Unknown] Pantoprazole Sodium [Protonix 40mg (*)] 40 mg PO DAILY 04/09/17 [Last Taken ] Pramipexole Di-HCl [Mirapex] 0.5 - 1 mg PO HS PRN 04/09/17 [Last Taken 04/08/17] Spironolactone [Aldactone 25 MG (*)] 25 mg PO BID@,04/09/17 [Last Taken 08:00] celeCOXIB [Celebrex (*)] 200 mg PO DAILY 04/09/17 [Last Taken 01/06/18] traMADol [Ultram 50 mg (*)] 50 mg PO TID@,,04/09/17 [Last Taken 01/06/18 08:00] Atorvastatin Calcium [Lipitor 10 mg (*)] 10 mg PO DAILY 01/06/18 [Last Taken ] Gabapentin [Neurontin 300 MG (*)] 300 mg PO BID@08,16 01/06/18 [Last Taken 01/06 08:00] Gabapentin [Neurontin 300 MG (*)] 900 mg PO HS 01/06/18 [Last Taken 01/05/18] Potassium Cl [Klor-Con 20 meq (*)] 20 meq PO BID@08,16 01/06/18 [Last Taken Unknown] Calcium Carbonate [Tums 500MG (*)] 500 mg PO TID PRN tab.chew 01/14/18 [Last Taken Unknown] Famotidine [Pepcid 20 MG (*)] 20 mg PO BID PRN tab 01/14/18 [Last Taken Unknown ] Polyethylene Glycol 3350 [Miralax 17 gm (*)] 17 gm PO DAILY PRN pkt 01/14/18 [ Last Taken Unknown] Sotalol HCl [Betapace 80 MG (*)] 120 mg PO BID tab 01/14/18 [Last Taken Unknown ] predniSONE 40 mg PO DAILY #17 tab 01/14/18 [Last Taken Unknown] [employer] Antibiotics: NA Additional Medication Instructions: Prednisone taper: 40mg x 3 days, then 30mg x 3 days, then 20mg x 3 days, then 10mg x 3 days, then stop Discharge Medications: Refer to the Discharge Home Medication list for PRN reason. PICC Care - Routine: N/A - Orders Services needed: Registered Nurse, Certified Health Insurance Specialist, Physical Therapy, Occupational Therapy Isolation Type: None Oxygen: 0.5-2LPM (MUST maintain sat < 90%, goal sat is 80-89%) Diet Recommendation: cardiac -low fat low salt Weigh Patient: daily Blake: Not applicable Equipment: BiPAP HS (set at 25/4, with a back-up rate of 20/min) - Labs/Radiology BMP Date: 01/16/18 Call or Fax Lab and Imaging Results to: Dr. Schreiber and Dr. Flores - Follow Up Care Current Providers and Referrals: RAFAT LUNA [Primary Care Provider] - Estrada Lynch MD [Medical Doctor] - Bradley Schreiber MD [Medical Doctor] - (follow-up on 02/05/18) Deisi Flores MD [Medical Doctor] - (follow-up 02/05/18)
[2018-01-14] MEDS: ASPIRIN EC 81 MG TAB PO SCH (12:13)
--- NOTE | 2018-01-14 12:42 | ASMTLACE ---
LACE Length of stay for Answers: 7-13 days current admission Acuity / Level of Answers: Yes Care: Did the patient have an inpatient admission? Comorbidities - select Answers: Chronic pulmonary disease all that apply Congestive heart failure Coronary Artery Disease Other Notes: Afl with RVR # of Emergency department Answers: 1-2 visits in the last 6 months Score: 16 Date Signed: 01/14/2018 12:41 PM Electronically Signed By:ARIANE Pope
--- NOTE | 2018-01-14 13:22 | PDINTPN ---
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 Also given acetazolamide for ongoing diuresis. * Acute respiratory failure with hypoxia and hypercapnia, 2/2 COPD plus LUIS ALBERTO. Stable with her current regimen including Advair 500, duoneb QID, solumedrol now 60/day, prn xopenex, and bipap. No macrolide abx. * CHF- last echo I could find showed EF 53% and diastolic dysfunction. I would do NOT favor the use of acetazolamide in patients with chronic CO2 retention since causing a bicaronaturia will deplete necessary stores to maintain pH. Stable off diamox but last dose yest afternoon. * Afib- converted and stable- defer to cardiology * LUIS ALBERTO- her AHI was 75 on a recent sleep study but she has not yet started CPAP at home. She should continue to use it QHS, but attempt to avoid NIV during the day for now. Rx written and left in room for current bipap settings to use at SNF at [facility]. * PNA- she remains afebrile, cultures are negative and her WBC is low. No current abx, but would favor macrolides if needed. * * Stable for dc to snf, will fu with Dr. Schreiber as outpatient. Discussed steroid taper with Dr. Figueroa Subjective: no events Objective: Vital Signs Temp Pulse Resp BP Pulse Ox 36.9 C 70 18 134/59 H 84 L 01/14/18 11:23 01/14/18 11:33 01/14/18 11:33 01/14/18 11:23 01/14/18 11:33 Laboratory Results 01/12/18 03:46 01/14/18 03:48 01/13/18 01/14/18 01/15/18 05:59 05:59 05:59 Intake Total 1570 1150 Output Total 1600 2200 600 Balance -30 -1050 -600 PT 12.9 SEC (12.0-15.0) 01/07/18 05:13 INR 0.95 (0.83-1.16) 01/07/18 05:13 Physical Exam - Physical Exam General Appearance: WD/WN, alert, no apparent distress, obese EENT: PERRL/EOMI Neck: supple Respiratory: lungs clear, normal breath sounds, No respiratory distress, No accessory muscle use Cardiac/Chest: regular rate, rhythm, No edema Abdomen: non-tender, soft, No distended Skin: normal color, warm/dry, No cyanosis Lymphatic: no adenopathy Extremities: No pedal edema Neuro/Psych: alert, normal mood/affect, oriented x 3 ICD10 Worksheet Patient Problems: Problems Problem Status Onset Acute dyspnea Acute COPD exacerbation Acute Chronic Disease Mgmt/Transitional Care Acute Hypoxia Acute Near syncope Acute
[2018-01-14 13:25] VITALS: O2SAT 87
--- NOTE | 2018-01-15 09:06 | ASDISCHSUM ---
Discharge Information Plan Status:SNF Medically Cleared to Leave:01/14/2018 Discharge Date:01/14/2018 02:10 PM D/C Disposition:Jail Facility ADT D/C Disposition:Jail Facility Projected Discharge Date:01/14/2018 11:00 AM Transportation at D/C:Wheelchair Van Discharge Delay Reason: Follow-Up Date:01/14/2018 11:00 AM Discharge Slot: Final Diagnosis:Respiratory failure, COPD Placement Information Referral Type:*Home Health Care Services Referral ID:[facility]-[id number] Provider Name: Address 1: Phone Number: Address 2: Fax Number: City: Selection Factors: State: Referral Type:*Detention/SNF Referral ID:[facility]-[id number] Provider Name:[facility] Address 1:[address] Address 2: City:[place] Selection Factors: State:[place] Patient Contact Information Contact Name:LAVELLE Relationship: [address] Work Phone: City:[place] Alternate Phone: State/Zip Code:[place] [address] Email: Financial Information Financial Class:Medicare Primary Plan Desc:MEDICARE INPATIENT Primary Plan Number:[id number] Secondary Plan Desc:[facility] Secondary Plan Number:[id number] Assessment Information [facility] CM Progress Note CM Note CM Note Notes: Patient admitted for Sotalol titration. She may also be a candidate for AF ablation. She is normally independent, , and has supportive family in the area. OT has been ordered. Case Management will follow for any discharge needs. Date Signed: 01/07/2018 02:01 PM Electronically Signed By:Nette Sims RN MILIE LACE Length of stay for Answers: 7-13 days current admission Acuity / Level of Answers: Yes Care: Did the patient have an inpatient admission? Comorbidities - select Answers: Chronic pulmonary disease all that apply Congestive heart failure Coronary Artery Disease Other Notes: Afl with RVR # of Emergency department Answers: 1-2 visits in the last 6 months Score: 16 Date Signed: 01/14/2018 12:41 PM Electronically Signed By:ARIANE Pope [facility] CM Progress Note CM Note CM Note Notes: CM spoke w/ Dr. Evans regarding d/c POC. Dr. Evans has concerns about pts safety at home. Therapies have been ordered and awaiting recommendations. CM to follow. Plan: TBD Date Signed: 01/08/2018 02:12 PM Electronically Signed By:ARIANE Pope [facility] CM Progress Note CM Note CM Note Notes: Chart reviewed. Discussed with PT. Therapies recommending [facility]. Patient agreeable. She was recently with [facility]. Referral placed via [employer]. Awaiting reply. Plan home with [facility]. CM to follow. Date Signed: 01/09/2018 10:37 AM Electronically Signed By:Larisa Rosales RN [facility] CM Progress Note CM Note CM Note Notes: Discussed pt in rounds, pt's daughters and also present. Dc plan is tentatively to go home w/[facility], however, daughters expressed concern saying that pt's is not doing so great either and that they may need more help at home. I let them know that CM will talk more with them about private duty care. They were not present later in day when I attempted to discuss so CM can follow up with them tomorrow. Dr Figueroa also brought up the possibility of SNF if needed. PT recommending [facility] as of yesterday but pt was not able to work with PT today b/c breathing/CO2 issues. CM will follow. Date Signed: 01/10/2018 04:51 PM Electronically Signed By:Orin Bender RN [facility] CM Progress Note CM Note CM Note Notes: Spoke to patient and family. [facility] This CM sent a referral. Date Signed: 01/11/2018 03:26 PM Electronically Signed By:Bel Sethi LCSW [facility] CM Progress Note CM Note CM Note Notes: 01/12/2018 Case Management Note Met pt during rounds today. [facility] Anticipating d/c on Fri or . Case Management d/c poc: to [facility] when medically stable. Case Management to follow. Date Signed: 01/12/2018 12:55 PM Electronically Signed By:Leslie Forrest RN Case Management Discharge Plan Note Case Management Discharge Discharge Order Complete? Answers: Yes Patient to Obtain Answers: Other Notes: [facility] Medications Transportation Arranged Answers: Other Notes: [facility] Transport will Pick (Date 01/14/2018 02:00 PM & Time) EMTALA Complete Answers: No Case Management Transport Answers: Yes Form Complete Faxed Final Orders Answers: Yes Agency/Facility Transfer Answers: Yes Report Printed & Faxed to Receiving Agency Family Notified Answers: No Discharge Comments Notes: Pts case discussed in morning rounds. Pt is being discharged today to [facility]. CM coordinated d/c with Zeny at [facility]. CM sent d/c orders. CM provided VIPUL Stanton w/ phone number to give report. CM available for changes. Plan: [facility] Date Signed: 01/14/2018 12:40 PM Electronically Signed By:ARIANE Pope Intervention Information Intervention Type:*IM-Signed Date of Service:01/14/2018 11:13 AM Patient Type:Inpatient Staff Member:Sarina Muñoz Hours: Discipline: Severity: Comment:
== END 2018-01-14 14:10 | DRG 308 ==
LOC: F2W 15:34 → OBSVTOIN 17:00
PROVIDERS: ADMIT Internal Medicine Cardiovascular Disease; ATTEND Internal Medicine Cardiovascular Disease
PROC: 5A09358 Assistance with Respiratory Ventilation, Less than 24 Consecutive Hours, Intermittent Positive Airway Pressure (ICD-10-PCS; principal; 2018-01-07)
DX: I48.1 Persistent atrial fibrillation (principal); I48.92 Unspecified atrial flutter; J96.22 Acute and chronic respiratory failure with hypercapnia; J96.21 Acute and chronic respiratory failure with hypoxia; J44.1 Chronic obstructive pulmonary disease with (acute) exacerbation; J18.9 Pneumonia, unspecified organism; I50.31 Acute diastolic (congestive) heart failure; G93.41 Metabolic encephalopathy; I11.0 Hypertensive heart disease with heart failure; I25.10 Atherosclerotic heart disease of native coronary artery without angina pectoris; I27.20 Pulmonary hypertension, unspecified; G62.9 Polyneuropathy, unspecified; F17.200 Nicotine dependence, unspecified, uncomplicated; Z95.5 Presence of coronary angioplasty implant and graft; Z95.0 Presence of cardiac pacemaker; Z99.81 Dependence on supplemental oxygen; Z86.73 Personal history of transient ischemic attack (TIA), and cerebral infarction without residual deficits; Z66 Do not resuscitate
CPT/HCPCS: 97116-GP; 97161-GP; 97165-GO; 97530-GO; 97530-GP; 97535-GO; G8978-GP-CJ; G8979-GP-CI; G8980-GP-CI; G8987-GO-CJ; G8988-GO-CI; J0696; J1120; J1650; J2405; J2930

== ENCOUNTER 2019-04-05 07:37 | Inpatient (IN) | payer OTHER | END 2019-04-09 12:11 | LOC: F3E 04-06 17:25 → F2N 17:33 ==